=== PATIENT | female | born 1935 | race Caucasian/White ===

== ENCOUNTER 2022-11-22 13:44 | Outpatient (REF) | payer BC, SELFPAY ==
[2022-11-22 15:27] LABS: Thyroid Stimulating Hormone* 0.852 uIU/mL (0.270-4.20)
== END 2022-11-22 13:45 | disposition home or self-care (01) ==
LOC: NPINS 13:44
PROVIDERS: PCP Family Medicine; Visit Provider Nurse Practitioner Gerontology
DX: E03.9 Hypothyroidism, unspecified (principal)
CPT/HCPCS: 84443

== ENCOUNTER 2023-11-20 10:28 | Outpatient (REF) | payer BC, SELFPAY ==
[2023-11-20 11:38] LABS: Thyroid Stimulating Hormone* 0.781 uIU/mL (0.270-4.20)
== END 2023-11-20 10:29 | disposition home or self-care (01) ==
LOC: NPINS 10:28
PROVIDERS: PCP Family Medicine; Visit Provider Nurse Practitioner Gerontology
DX: E03.9 Hypothyroidism, unspecified (principal)
CPT/HCPCS: 84443

== ENCOUNTER 2024-02-26 11:48 | Outpatient (REF) | payer BC, SELFPAY ==
[2024-02-26 12:49] LABS: Chloride* 108 mmol/L (96-114)
[2024-02-26 12:50] LABS: Potassium* 4.8 mmol/L (3.6-5.1); Sodium* 139 mmol/L (135-149)
[2024-02-26 12:52] LABS: Creatinine* 1.1 mg/dL (0.5-1.5); Estimated Glomerular Filt Rate 49 ml/min
[2024-02-26 12:53] LABS: Anion Gap 8 mEq/L (7-15); Blood Urea Nitrogen* 37 mg/dL (7-30); Calcium* 9.5 mg/dL (8.4-10.6); Carbon Dioxide* 23 mmol/L (20-32); Glucose* 95 mg/dL (60-115)
== END 2024-02-26 11:49 | disposition home or self-care (01) ==
LOC: NPINS 11:48
PROVIDERS: PCP Family Medicine; Visit Provider Family Medicine
DX: I10 Essential (primary) hypertension (principal)
CPT/HCPCS: 80048

== ENCOUNTER 2024-05-20 11:15 | Outpatient (REF) | payer BC, SELFPAY ==
[2024-05-20 11:56] LABS: Chloride* 105 mmol/L (96-114); Potassium* 4.7 mmol/L (3.6-5.1); Sodium* 140 mmol/L (135-149)
[2024-05-20 11:58] LABS: Creatinine* 1.4 mg/dL (0.5-1.5); Estimated Glomerular Filt Rate 36 ml/min
[2024-05-20 11:59] LABS: Anion Gap 7 mEq/L (7-15); Blood Urea Nitrogen* 30 mg/dL (7-30); Calcium* 9.8 mg/dL (8.4-10.6); Carbon Dioxide* 28 mmol/L (20-32); Glucose* 94 mg/dL (60-115)
== END 2024-05-20 11:16 | disposition home or self-care (01) ==
LOC: NPINS 11:15
PROVIDERS: PCP Family Medicine; Visit Provider Nurse Practitioner Gerontology
DX: I10 Essential (primary) hypertension (principal); E03.9 Hypothyroidism, unspecified
CPT/HCPCS: 80048; 84443

== ENCOUNTER 2024-08-06 09:26 | Inpatient (IN) | payer BC, SELFPAY ==
[2024-08-06] VITALS (25 sets, daily range): BP systolic 145–178; BP diastolic 71–95; PULSE 67–78; RESP 16–18; TEMP 36.1–36.6; O2SAT 92–98; BMI 21.1; BMI 21.3
--- NOTE | 2024-08-06 09:25 | CT_ITS ---
Patient: EFREN KELLY Facility:?[facility] Patient ID:?[id number] Site Patient ID:?[id number]. Site :?[id number] Study:?CT-Head WITHOUT-08/06/2024 9:50:36 AM Ordering Physician:Nelson Torres Final Report: INDICATION: Fall. TECHNIQUE: CT head without contrast. COMPARISON: CT brain December 2019 FINDINGS: There is acute left parietal convexity subdural hemorrhage with a coronal length of 3 millimeter. Minimal subarachnoid hemorrhage of the left temporal sulci. Redemonstration of the moderate size chronic left cerebellar infarct and chronic lacunar infarct in the right caudate. Confluent periventricular, deep and subcortical white matter signal abnormalities are nonspecific and are likely related to chronic microvascular ischemic changes. Large left periorbital and frontal scalp hematoma with a contusion. Intraconal fat planes are preserved in bilateral orbits. Paranasal sinuses are well pneumatized. Minimal right mastoid effusion. No calvarial fracture. IMPRESSION: Acute minimal left parietal convexity subdural hemorrhage and minimal subarachnoid hemorrhage in the temporal lobe sulci. Large left frontal and periorbital hematoma and scalp contusion. Critical findings were communicated to Dr. Grant Torres by Dr. Dav MD radiology at 10 a.m. on 08/06/2024. Please note that all CT scans at this facility use dose modulation, iterative reconstruction, and/or weight-based dosing when appropriate to reduce radiation dose to as low as reasonably achievable. Dictated by Surinder Demarco MD @ 08/06/2024 10:09:56 AM Signed by:?Surinder Demarco MD @08/06/2024 10:09:56 AM (Electronic Signature)
--- NOTE | 2024-08-06 09:35 | CT_ITS ---
Patient: EFREN KELLY Facility:?[facility] Patient ID:?[id number] Site Patient ID:?[id number]. Site :?[id number] Study:?CT-Spine Cervical WITHOUT-08/06/2024 9:50:50 AM Ordering Physician:Nelson Torres Final Report: INDICATION: Fall. TECHNIQUE: CT cervical spine without contrast. COMPARISON: None. FINDINGS: Bilateral occipital condyles are intact. Atlantooccipital and atlanto odontoid intervals are maintained. There is straightening of normal cervical lordosis. No acute vertebral wedging compression fracture or malalignment. There is advanced multilevel degenerative changes with confluent anterior osteophytes at C2 through C7 levels. Large posterior osteophyte at C4 and C5 levels with ossification of the posterior longitudinal ligament. There is significant right subarticular recess stenosis at C4-5 level. There is moderate right neural foraminal stenosis at the same level with uncovertebral and facet arthropathy. Advanced uncovertebral hypertrophy with posterior protruding osteophytes in addition to facet arthropathies causing severe right neural foraminal narrowing at C3-4 level. No bloody vertebral hematoma. Calcified nodular density into the left thyroid lobe 3, likely goitrous changes. Paraseptal emphysema and apical pleural thickening in the included lung apices. IMPRESSION: Multilevel advanced degenerative changes of the spine without acute osseous injury. 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 Please note that all CT scans at this facility use dose modulation, iterative reconstruction, and/or weight-based dosing when appropriate to reduce radiation dose to as low as reasonably achievable. Dictated by Surinder Demarco MD @ 08/06/2024 10:19:08 AM Signed by:?Surinder Demarco MD @08/06/2024 10:19:08 AM (Electronic Signature)
--- NOTE | 2024-08-06 09:35 | CT_ITS ---
Patient: EFREN KELLY Facility:?[facility] Patient ID:?[id number] Site Patient ID:?[id number]. Site :?[id number] Study:?CT-Facial WITHOUT-08/06/2024 9:51:11 AM Ordering Physician:Nelson Torres Final Report: INDICATION: Facial injury. TECHNIQUE: CT maxillofacial without contrast. COMPARISON: CT brain August 06, 2024 FINDINGS: Bilateral zygomaticomaxillary complex is intact. Naso-orbital ethmoidal complexes are intact. Pterygoid plates are intact. Mandible is incompletely imaged. Included mandible is intact. Bilateral TM joint demonstrates no acute findings. Minimal mucosal thickening of the anterior right ethmoidal air cells and left maxillary sinus. Minimal bilateral mastoid effusion. Redemonstration of large left periorbital soft tissue hematoma and frontal scalp contusion with hematoma. Bilateral orbital globes are intact. Intraconal fat planes are maintained. Rest of the neck fat planes are maintained. IMPRESSION: Redemonstration of large left periorbital and frontal scalp hematoma. No acute osseous injury. Please note that all CT scans at this facility use dose modulation, iterative reconstruction, and/or weight-based dosing when appropriate to reduce radiation dose to as low as reasonably achievable. Dictated by Surinder Demarco MD @ 08/06/2024 10:28:45 AM Signed by:?Surinder Demarco MD @08/06/2024 10:28:45 AM (Electronic Signature)
[2024-08-06 10:12] LABS: Lactate* 1.3 mmol/L (0.5-1.9)
[2024-08-06 10:17] LABS: Basophils Percent Auto 0.6 % (0.0-3.0); Eosinophils Percent Auto 0.8 % (0.0-7.0); Hematocrit 45.2 % (33.0-51.0); Hemoglobin* 14.3 gm/dL (12.0-16.0); Immature Granulocytes Pct Auto 0.3 %; Lymphocytes Percent Auto 14.6 % (20-44); Mean Corpuscular HGB Conc 32 gm/dL (32-36); Mean Corpuscular Hemoglobin 28 pg (26-34); Mean Corpuscular Volume 88 fL (80-100); Monocytes Percent Auto 5.6 % (0.0-11.0); Neutrophils Percent Auto 78.1 % (42.0-72.0); Platelet Count* 96 K/uL (140-440); RDW Coefficient of Variation % 13.9 % (11.5-15.5); Red Blood Count 5.12 m/uL (4.00-5.20); White Blood Count* 12.18 K/uL (4.50-11.00)
--- NOTE | 2024-08-06 10:19 | CRLHL7_ITS ---
For Patients: As a result of the Century Cures Act, medical imaging exams and procedure reports are released immediately into your electronic medical record. You may view this report before your referring provider. If you have questions, please contact your health care provider. Indication: FALL. LEFT SIDED PAIN Technique: CT chest without IV contrast Comparison: None Findings: Enlarged thyroid gland with multiple calcified left thyroid nodules. No thoracic lymphadenopathy. Calcified left hilar lymph nodes, likely sequela of remote granulomatous disease. The heart is normal in size. No pericardial effusion. Coronary artery and aortic valve calcifications. The ascending thoracic aorta measures 3.9 centimeters in diameter. Artery moderate calcific atherosclerosis of the thoracic aorta. Is normal in caliber. The pulmonary moderate paraseptal and centrilobular emphysematous changes. No focal airspace consolidation, pleural effusion, or pneumothorax. Mild bibasilar and dependent linear atelectatic changes/scarring. There are a few sub 4 millimeter, some pleural nodules seen in the left upper lobe, likely benign. Calcified granuloma in the left lower lobe. The visualized upper abdomen is without acute abnormality. Likely simple appearing hepatic cysts. Calcified granulomas in the spleen. Cystic-like lesions in the bilateral kidneys, incompletely characterized on this exam. No acute fracture or malalignment. 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 No suspicious osseous lesions. Impression: 1. No acute fracture or malalignment. 2. Moderate paraseptal and centrilobular emphysematous changes. 3. There are a few sub 4 millimeter, subpleural pulmonary nodules in the left upper lobe, likely benign. If patient is at high risk for developing lung malignancy recommend repeat CT chest in 1 year; otherwise, no routine follow-up imaging is needed. 4. Cystic-like lesions in the bilateral kidneys, incompletely characterized on this exam. Recommend correlation with prior imaging if available; otherwise, recommend outpatient CT or MR with renal protocol for further assessment. 5. Enlarged thyroid gland with multiple calcified left thyroid nodules. Recommend dedicated thyroid ultrasound if not recently performed. Please note that all CT scans at this facility use dose modulation, iterative reconstruction, and/or weight-based dosing when appropriate to reduce radiation dose to as low as reasonably achievable. Dictated by Conner Ashley MD @ 08/06/2024 11:24:39 AM (Electronically Signed)
--- NOTE | 2024-08-06 10:19 | CRLHL7_ITS ---
For Patients: As a result of the Cures Act, medical imaging exams and procedure reports are released immediately into your electronic medical record. You may view this report before your referring provider. If you have questions, please contact your health care provider. Indication: Fall. Technique: Three view(s) of the left shoulder. Comparison: None available. Findings: No displaced fracture is identified. No dislocation. Osseous demineralization. Moderate acromioclavicular osteoarthritis. Subacromial enthesophyte formation. Mild streaky opacities in the left lung base. Atherosclerotic aortic calcifications. Impression: 1. No displaced fracture identified. 2. Hypoinflated lungs with streaky left basilar airspace opacities favoring subsegmental atelectasis. Dictated by Juanis Donaldson MD @ 08/06/2024 11:01:12 AM (Electronically Signed)
[2024-08-06 10:23] LABS: Slide Review Reflex No
[2024-08-06 10:35] LABS: Albumin* 4.3 g/dL (3.3-5.0); Chloride* 103 mmol/L (96-114); Sodium* 136 mmol/L (135-149)
[2024-08-06 10:38] LABS: Alkaline Phosphatase* 96 U/L (40-150); Anion Gap 7 mEq/L (7-15); Aspartate Amino Transferase* 18 U/L (12-35); Bilirubin Direct* 0.1 mg/dL (0.0-0.5); Bilirubin Total* 0.3 mg/dL (0.1-1.5); Blood Urea Nitrogen* 31 mg/dL (7-30); Carbon Dioxide* 26 mmol/L (20-32); Creatine Kinase* 51 U/L (41-117); Creatinine* 1.3 mg/dL (0.5-1.5); Est. Creatinine Clearance* 29.47; Estimated Glomerular Filt Rate 40 ml/min; Total Protein* 7.2 g/dL (6.0-8.3)
[2024-08-06 10:39] LABS: Alanine Aminotransferase* 11 U/L (4-35); Calcium* 9.6 mg/dL (8.4-10.6); Glucose* 122 mg/dL (60-115)
--- NOTE | 2024-08-06 11:00 | ED.NURSE ---
Patient requests to keep her home gown on as it is warmer. Can assess all areas of her body with her gown on.
--- NOTE | 2024-08-06 11:11 | ED.GENADULT ---
HPI - General Adult General Chief complaint: Fall/Minor Trauma Stated complaint: fall Time Seen by Provider: 08/06/24 09:45 Source: patient Mode of arrival: ambulatory Limitations: no limitations History of Present Illness HPI narrative: 89-year-old female coming in today after falling out of her bed this morning. She is not sure which she had on the way down she presents with a large facial hematoma. She complains of a headache. She feels ?sore all over?. She complains of discomfort over both sides of her neck, the left shoulder, left arm and left anterior chest wall. She is not short of breath or confused. She is alert oriented x3. She has a hard time opening her left eye due to the trauma. She denies any changes in her speech or strength. Patient lives in assisted living. Ambulates independently. Medical history significant for hypothyroidism, hypertension Meds were reviewed and updated in the chart. Related Data Home Medications ?Medication ?Instructions ?Recorded ?Confirmed calcium carbonate (Oyster [place] 500 mg PO DAILY 08/06/24 08/06/24 Calcium 500) cholecalciferol (vitamin D3) 50 50 mcg PO DAILY 08/06/24 08/06/24 mcg (2,000 unit) capsule levothyroxine 25 mcg tablet 25 mcg PO QAM 08/06/24 08/06/24 lisinopril 2.5 mg tablet 2.5 mg PO DAILY 08/06/24 08/06/24 metoprolol succinate 100 mg 100 mg PO DAILY 08/06/24 08/06/24 tablet,extended release 24 hr mirtazapine 30 mg tablet 30 mg PO DAILY 08/06/24 08/06/24 venlafaxine 150 mg 150 mg PO DAILY 08/06/24 08/06/24 capsule,extended release 24 hr Allergies Allergy/AdvReac Type Severity Reaction Status Date / Time No Known Drug Allergies Allergy Verified 08/06/24 09:27 Review of Systems Status of ROS: Reports: 10 or more systems reviewed and unremarkable except as noted in History and below Exam Narrative: Exam Narrative: Well-nourished well-developed patient in no acute distress. Alert and oriented x3. Answers questions appropriately. Mood and affect are appropriate. Thoughts are goal oriented and rational. No tangential or magical thinking noted. Patient speaks in full sentences without needing to catch her breath. GCS is 15. Patient is speaking and breathing without difficulty. HEENT: Normocephalic. Pupils are equally round reactive to light. Extraocular muscles are intact and do not cause pain with movement. Conjunctivae are moist without any icterus noted. Moist mucous membranes. Posterior pharynx is normal. No trauma noted to the inside of the mouth. Neck is soft , no masses appreciated. Patient has a large hematoma covering the entire left eye and left anterior forehead. Cardiovascular: Heart is regular rate and rhythm. Lungs: Clear to auscultation bilaterally no wheezes rhonchi or rales are appreciated. Patient takes deep breaths without any discomfort. She has some mild tenderness to palpation of the anterior left chest wall that is diffuse, no point tenderness over any particular rib. Mild tenderness over the anterior left shoulder and her upper arm. Abdomen: Soft, normal bowel sounds. Abdomen is distended but is nontender. Extremities: Bilateral lower extremities are without edema. A slight erythema secondary to skin irritation of the left knee. she can move the upper extremity - full range of motion at the shoulder with some discomfort. No acute point tenderness noted anywhere. Skin: Well perfused. Back: Normal appearance. Patient has no tenderness to palpation at the cervical, thoracic or lumbar spine. Patient has decreased range of motion of the neck secondary to discomfort. She has no acute tenderness over the cervical spine itself but does have tenderness over the paraspinal musculature. Const: Vital Signs, click to edit/add: Vital Signs - 24 hr 08/06/24 09:29 08/06/24 09:46 08/06/24 10:16 Temperature 97.5 F L Pulse Rate 69 Pulse Rate [Pulse Oximeter] 78 Respiratory Rate 17 Blood Pressure Blood Pressure [Ri ght Upper Arm] 174/80 H Pulse Oximetry 97 95 93 Oxygen Delivery Me thod Room Air 08/06/24 10:30 08/06/24 10:33 08/06/24 10:34 Temperature Pulse Rate 68 67 67 Pulse Rate [Pulse Oximeter] Respiratory Rate Blood Pressure 173/80 H Blood Pressure [Ri ght Upper Arm] Pulse Oximetry 93 96 94 Oxygen Delivery Me thod 08/06/24 11:01 08/06/24 11:05 08/06/24 11:15 Temperature Pulse Rate 68 68 67 Pulse Rate [Pulse Oximeter] Respiratory Rate Blood Pressure 178/95 H Blood Pressure [Ri ght Upper Arm] Pulse Oximetry 97 97 96 Oxygen Delivery [place] thod 08/06/24 11:17 08/06/24 11:30 08/06/24 11:32 Temperature Pulse Rate 69 70 69 Pulse Rate [Pulse Oximeter] Respiratory Rate Blood Pressure 178/86 H 178/80 H Blood Pressure [Ri ght Upper Arm] Pulse Oximetry 95 95 95 Oxygen Delivery Me thod 08/06/24 11:33 08/06/24 11:45 08/06/24 11:47 Temperature Pulse Rate 70 71 74 Pulse Rate [Pulse Oximeter] Respiratory Rate 16 Blood Pressure 153/71 H Blood Pressure [Ri ght Upper Arm] Pulse Oximetry 96 92 95 Oxygen Delivery Me thod Course Course ED Course: Patient arrives in a C-collar. We proceed immediately to head, facial and cervical spine CTs. Head CT shows small subdural and subarachnoid hematoma. We also do a shoulder x-ray which is unremarkable and a chest CT which is unremarkable aside from some pulmonary nodules and cystic lesions of the kidneys that will require follow-up pending patient wishes. I consulted with Dr. Solorzano, customs examiner at [facility], he recommends blood pressure control to keep her systolic less than 160. Because of this we did give her a dose of labetalol 10 mg IV. Blood pressure came down to 153/71. Also discussed with Dr. Solorzano that if the patient wishes to have significant intervention, then we should transfer the patient. I had this discussion with the patient who stated that she is ?too old to have any major surgery?. She wished to stay at [place] and not be transferred to [place]. We discussed that in the event she decompensates that there will be no intervention available here to save her life and patient states that she understands this. Blood work was also done prior to admission. Vital Signs Vital signs: Initial Vital Signs Temperature 97.5 F L 08/06/24 09:29 Temperature Source Temporal Artery Scan 08/06/24 09:29 Pulse Rate 78 08/06/24 09:29 Respiratory Rate 17 08/06/24 09:29 Blood Pressure 174/80 H 08/06/24 09:29 Blood Pressure Mean 111 H 08/06/24 09:29 Pulse Oximetry 97 08/06/24 09:29 Oxygen Delivery Method Room Air 08/06/24 09:29 Vital Signs Temperature 97.5 F L 08/06/24 09:29 Pulse Rate 78 08/06/24 09:29 Respiratory Rate 17 08/06/24 09:29 Blood Pressure 174/80 H 08/06/24 09:29 Pulse Oximetry 97 08/06/24 09:29 Oxygen Delivery Method Room Air 08/06/24 09:29 Temperature 97.5 F L 08/06/24 09:29 Pulse Rate 74 08/06/24 11:47 Respiratory Rate 16 08/06/24 11:33 Blood Pressure 153/71 H 08/06/24 11:47 Pulse Oximetry 95 08/06/24 11:47 Oxygen Delivery Method Room Air 08/06/24 09:29 Medications Administered Medications: Discontinued Medications Generic Name Dose Route Start Last Admin Trade Name Freq PRN Reason Stop Dose Admin Labetalol HCl 10 mg 08/06/24 11:00 08/06/24 11:37 Labetalol Hcl 5 Mg/Ml Inj IVP 08/06/24 11:01 10 mg ONCE ONE Administration Medical Decision Making MDM Narrative Medical decision making narrative: 89-year-old female with subdural and subarachnoid hemorrhages status post fall out of her bed, large facial hematoma. Patient will be admitted for monitoring and management. Lab Data Lab results reviewed: Yes I reviewed the patient's lab results Labs: Lab Results 08/06/24 Range/Units 10:05 WBC 12.18 H (4.50-11.00) K/uL RBC 5.12 (4.00-5.20) m/uL Hgb 14.3 (12.0-16.0) gm/dL Hct 45.2 (33.0-51.0) % MCV 88 (80-100) fL MCH 28 (26-34) pg MCHC 32 (32-36) gm/dL RDW Coeff of Peyton 13.9 (11.5-15.5) % Plt Count 96 L (140-440) K/uL Neut % (Auto) 78.1 H (42.0-72.0) % Lymph % (Auto) 14.6 L (20-44) % [place] % (Auto) 5.6 (0.0-11.0) % Eos % (Auto) 0.8 (0.0-7.0) % Baso % (Auto) 0.6 (0.0-3.0) % Neut # (Auto) 9.50 H (1.7-7.0) K/uL Lymph # (Auto) 1.80 (0.90-2.90) K/uL [place] # (Auto) 0.70 (0.00-0.90) K/UL Eos # (Auto) 0.10 (0.00-0.50) K/uL Baso # (Auto) 0.10 (0.00-0.30) K/uL Abs Immat Gran (auto) 0.00 (0.00-0.30) K/uL Imm/Tot Granulo (auto) 0.3 % Sodium 136 (135-149) mmol/L Potassium 4.0 (3.6-5.1) mmol/L Chloride 103 (96-114) mmol/L Carbon Dioxide 26 (20-32) mmol/L Anion Gap 7 (7-15) mEq/L BUN 31 H (7-30) mg/dL Creatinine 1.3 (0.5-1.5) mg/dL Estimated Creat Clear 29.47 Estimated GFR 40 ml/min Glucose 122 H (60-115) mg/dL Lactate 1.3 (0.5-1.9) mmol/L Calcium 9.6 (8.4-10.6) mg/dL Total Bilirubin 0.3 (0.1-1.5) mg/dL Direct Bilirubin 0.1 (0.0-0.5) mg/dL AST 18 (12-35) U/L ALT 11 (4-35) U/L Alkaline Phosphatase 96 (40-150) U/L Total Creatine Kinase 51 (41-117) U/L C-Reactive Protein 3.0 H (0.5-1.0) mg/dL Total Protein 7.2 (6.0-8.3) g/dL Albumin 4.3 (3.3-5.0) g/dL Imaging Data X-ray shoulder: Attestation: I have reviewed the pertinent imaging results. Radiologist's impression: Three view(s) of the left shoulder. Comparison: None available. Findings: No displaced fracture is identified. No dislocation. Osseous demineralization. Moderate acromioclavicular osteoarthritis. Subacromial enthesophyte formation. Mild streaky opacities in the left lung base. Atherosclerotic aortic calcifications. Impression: 1. No displaced fracture identified. 2. Hypoinflated lungs with streaky left basilar airspace opacities favoring subsegmental atelectasis. CT scan - chest: Attestation: I have reviewed the pertinent imaging results. Radiologist's impression: CT chest without IV contrast Comparison: None Findings: Enlarged thyroid gland with multiple calcified left thyroid nodules. No thoracic lymphadenopathy. Calcified left hilar lymph nodes, likely sequela of remote granulomatous disease. The heart is normal in size. No pericardial effusion. Coronary artery and aortic valve calcifications. The ascending thoracic aorta measures 3.9 centimeters in diameter. Artery moderate calcific atherosclerosis of the thoracic aorta. Is normal in caliber. The pulmonary moderate paraseptal and centrilobular emphysematous changes. No focal airspace consolidation, pleural effusion, or pneumothorax. Mild bibasilar and dependent linear atelectatic changes/scarring. There are a few sub 4 millimeter, some pleural nodules seen in the left upper lobe, likely benign. Calcified granuloma in the left lower lobe. The visualized upper abdomen is without acute abnormality. Likely simple appearing hepatic cysts. Calcified granulomas in the spleen. Cystic-like lesions in the bilateral kidneys, incompletely characterized on this exam. No acute fracture or malalignment. 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 No suspicious osseous lesions. Impression: 1. No acute fracture or malalignment. 2. Moderate paraseptal and centrilobular emphysematous changes. 3. There are a few sub 4 millimeter, subpleural pulmonary nodules in the left upper lobe, likely benign. If patient is at high risk for developing lung malignancy recommend repeat CT chest in 1 year; otherwise, no routine follow-up imaging is needed. 4. Cystic-like lesions in the bilateral kidneys, incompletely characterized on this exam. Recommend correlation with prior imaging if available; otherwise, recommend outpatient CT or MR with renal protocol for further assessment. 5. Enlarged thyroid gland with multiple calcified left thyroid nodules. Recommend dedicated thyroid ultrasound if not recently performed. Cervical spine CT: Attestation: I have reviewed the pertinent imaging results. Radiologist's impression: TECHNIQUE: CT cervical spine without contrast. COMPARISON: None. FINDINGS: Bilateral occipital condyles are intact. Atlantooccipital and atlanto odontoid intervals are maintained. There is straightening of normal cervical lordosis. No acute vertebral wedging compression fracture or malalignment. There is advanced multilevel degenerative changes with confluent anterior osteophytes at C2 through C7 levels. Large posterior osteophyte at C4 and C5 levels with ossification of the posterior longitudinal ligament. There is significant right subarticular recess stenosis at C4-5 level. There is moderate right neural foraminal stenosis at the same level with uncovertebral and facet arthropathy. Advanced uncovertebral hypertrophy with posterior protruding osteophytes in addition to facet arthropathies causing severe right neural foraminal narrowing at C3-4 level. No bloody vertebral hematoma. Calcified nodular density into the left thyroid lobe 3, likely goitrous changes. Paraseptal emphysema and apical pleural thickening in the included lung apices. IMPRESSION: Multilevel advanced degenerative changes of the spine without acute osseous injury. 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: Attestation: I have reviewed the pertinent imaging results. Radiologist's impression: CT maxillofacial without contrast. COMPARISON: CT brain August 06, 2024 FINDINGS: Bilateral zygomaticomaxillary complex is intact. Naso-orbital ethmoidal complexes are intact. Pterygoid plates are intact. Mandible is incompletely imaged. Included mandible is intact. Bilateral TM joint demonstrates no acute findings. Minimal mucosal thickening of the anterior right ethmoidal air cells and left maxillary sinus. Minimal bilateral mastoid effusion. Redemonstration of large left periorbital soft tissue hematoma and frontal scalp contusion with hematoma. Bilateral orbital globes are intact. Intraconal fat planes are maintained. Rest of the neck fat planes are maintained. IMPRESSION: Redemonstration of large left periorbital and frontal scalp hematoma. No acute osseous injury. CT scan - head: Attestation: I have reviewed the pertinent imaging results. Radiologist's impression: CT head without contrast. COMPARISON: CT brain December 2019 FINDINGS: There is acute left parietal convexity subdural hemorrhage with a coronal length of 3 millimeter. Minimal subarachnoid hemorrhage of the left temporal sulci. Redemonstration of the moderate size chronic left cerebellar infarct and chronic lacunar infarct in the right caudate. Confluent periventricular, deep and subcortical white matter signal abnormalities are nonspecific and are likely related to chronic microvascular ischemic changes. Large left periorbital and frontal scalp hematoma with a contusion. Intraconal fat planes are preserved in bilateral orbits. Paranasal sinuses are well pneumatized. Minimal right mastoid effusion. No calvarial fracture. IMPRESSION: Acute minimal left parietal convexity subdural hemorrhage and minimal subarachnoid hemorrhage in the temporal lobe sulci. Large left frontal and periorbital hematoma and scalp contusion. Critical findings were communicated to Dr. Grant Torres by Dr. Dav MD radiology at 10 a.m. on 08/06/2024. Discharge Plan Discharge Clinical Impression: Acute subdural hematoma, Subarachnoid hematoma, Facial hematoma
[2024-08-06] MEDS: LABETALOL HCL 5 MG/ML inj 10 MG IVP (11:37)
--- NOTE | 2024-08-06 13:44 | P.IMHP_ITS ---
Hospitalist- H&P: HPI History of Present Illness Date Seen: 08/06/24 Chief complaint: fall Narrative: Noa Adams is a 89 year old female who presented to the ER this morning after falling out of bed, hitting the R side of her face, R arm/shoulder. She was down for approximately one hour prior to being found by staff in her assisted living apartment. Patient doesn't remember the mechanism of the fall, doesn't think she had palpitations or syncope. ER Course and findings: - facial CT negative for acute fracture, + for large periorbital soft tissue hematoma and frontal scalp contusion/hematoma. Globes intact bilaterally - no acute abnormalities on CT spine - L parietal subdural + subarachnoid hemorrhage in temporal lobe sulci Neurosurgery consulted, patient requested no transfer given wishes (DNR/DNI, requests no invasive procedures). Upon arrival to the floor, Noa is feeling better, no pain or other concerns for hospitalist team. Review of Systems Status of ROS: Reports: 10 or more systems reviewed and unremarkable except as noted in History and below [facility] Medical History (Updated 08/06/24 @ 14:55 by Triny Hong MD) Thrombocytopenia ?D69.6 - Thrombocytopenia, unspecified (ICD-10) Depression ?F32.A - Depression, unspecified (ICD-10) Essential hypertension ?I10 - Essential (primary) hypertension (ICD-10) Hypothyroidism ?E03.9 - Hypothyroidism, unspecified (ICD-10) Surgical History (Updated 08/06/24 @ 14:29 by Triny Hong MD) H/O mastectomy ?Z90.10 - Acquired absence of unspecified breast and nipple (ICD-10) S/P hip replacement ?Z96.649 - Presence of unspecified artificial hip joint (ICD-10) History of hip surgery ?Z98.890 - Other specified postprocedural states (ICD-10) Social History (Updated 08/06/24 @ 14:30 by Triny Hong MD) Narrative: Lives in Assisted Living, 2 adult children in [place]. 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 Former smoker, no ETOH use. DNR/DNI Meds Home Medications and Allergies Home Medications ?Medication ?Instructions ?Recorded ?Confirmed ?Type calcium carbonate (Oyster Shell 500 mg PO DAILY 08/06/24 08/06/24 History Calcium 500) cholecalciferol (vitamin D3) 50 50 mcg PO DAILY 08/06/24 08/06/24 History mcg (2,000 unit) capsule levothyroxine 25 mcg tablet 25 mcg PO QAM 08/06/24 08/06/24 History lisinopril 2.5 mg tablet 2.5 mg PO DAILY 08/06/24 08/06/24 History metoprolol succinate 100 mg 100 mg PO DAILY 08/06/24 08/06/24 History tablet,extended release 24 hr mirtazapine 30 mg tablet 30 mg PO DAILY 08/06/24 08/06/24 History venlafaxine 150 mg 150 mg PO DAILY 08/06/24 08/06/24 History capsule,extended release 24 hr Allergies Allergy/AdvReac Type Severity Reaction Status Date / Time No Known Drug Allergies Allergy Verified 08/06/24 09:27 Exam Narrative: Exam Narrative: GEN: Alert and answering questions appropriately HEENT: Large hematoma over L eye, able to open this house a tiny amount CV: RRR, No concerning murmurs, rubs, or gallops R: LCTA bilaterally without concerning wheezing, air movement adequate Ext: wwp, no concerning edema Skin: Scattered bruising over extremities Neuro: No focal deficits, no resting tremor Psych: Appropriate Const: Vital Signs, click to edit/add: Vital Signs - 24 hr 08/06/24 09:29 08/06/24 09:46 08/06/24 10:16 Temperature 97.5 F L Pulse Rate 69 Pulse Rate [Pulse Oximeter] 78 Respiratory Rate 17 Blood Pressure Blood Pressure [Ri ght Upper Arm] 174/80 H Pulse Oximetry 97 95 93 Oxygen Delivery Me od Room Air 08/06/24 10:30 08/06/24 10:33 08/06/24 10:34 Temperature Pulse Rate 68 67 67 Pulse Rate [Pulse Oximeter] Respiratory Rate Blood Pressure 173/80 H Blood Pressure [Ri ght Upper Arm] Pulse Oximetry 93 96 94 Oxygen Delivery Me thod 08/06/24 11:01 08/06/24 11:05 08/06/24 11:15 Temperature Pulse Rate 68 68 67 Pulse Rate [Pulse Oximeter] Respiratory Rate Blood Pressure 178/95 H Blood Pressure [Ri ght Upper Arm] Pulse Oximetry 97 97 96 [facility] 08/[facility] 11:17 08/06/24 11:30 08/06/24 11:32 Temperature Pulse Rate 69 70 69 Pulse Rate [Pulse Oximeter] Respiratory Rate Blood Pressure 178/86 H 178/80 H Blood Pressure [Ri ght Upper Arm] Pulse Oximetry 95 95 95 Oxygen Delivery Me thod 08/06/24 11:33 08/06/24 11:45 08/06/24 11:47 Temperature Pulse Rate 70 71 74 Pulse Rate [Pulse Oximeter] Respiratory Rate 16 Blood Pressure 153/71 H Blood Pressure [Ri ght Upper Arm] Pulse Oximetry 96 92 95 Oxygen Delivery Me thod 08/06/24 11:48 08/06/24 12:00 08/06/24 12:02 Temperature Pulse Rate 71 71 72 Pulse Rate [Pulse Oximeter] Respiratory Rate Blood Pressure 160/79 H Blood Pressure [Ri ght Upper Arm] Pulse Oximetry 94 95 95 Oxygen Delivery Me thod 08/06/24 12:15 08/06/24 12:17 Temperature Pulse Rate 71 73 Pulse Rate [Pulse Oximeter] Respiratory Rate 16 Blood Pressure 157/83 H Blood Pressure [Ri ght Upper Arm] Pulse Oximetry 94 96 [facility] - H&P: Result Labs Labs: Short CBC 08/06/24 Range/Units 10:05 WBC 12.18 H (4.50-11.00) K/uL Hgb 14.3 (12.0-16.0) gm/dL Hct 45.2 (33.0-51.0) % Plt Count 96 L (140-440) K/uL BMP 08/06/24 10:05 Sodium 136 Potassium 4.0 Chloride 103 Carbon Dioxide 26 BUN 31 H Creatinine 1.3 Glucose 122 H Calcium 9.6 Cardiac Enzymes 08/06/24 Range/Units 10:05 Total Creatine Kinase 51 (41-117) U/L Liver Function 08/06/24 Range/Units 10:05 Total Bilirubin 0.3 (0.1-1.5) mg/dL Direct Bilirubin 0.1 (0.0-0.5) mg/dL AST 18 (12-35) U/L ALT 11 (4-35) U/L Alkaline Phosphatase 96 (40-150) U/L Albumin 4.3 (3.3-5.0) g/dL Assessment and Plan Assessment and plan (1) Acute subdural hematoma: Problem comment: - noted on imaging 08/06, s/p fall - per neurosurgery: keep SBP <160 - will repeat head CT in am, sooner prn Status: Acute (2) Subarachnoid hematoma: Status: Acute (3) Thrombocytopenia: Problem comment: - chronic per chart review, current platelets 96 Status: Acute (4) Facial hematoma: Problem comment: - no facial fractures Status: Acute Plan - per above - monitoring, keep SBP <160 - therapies - d/c plan pending course
--- NOTE | 2024-08-06 18:40 | PC.NURSE ---
Pt arrived from ED at 1240. Pt alert and oriented. Pt pleasant and cooperative. Pt had complaints of pain ranging from 2-9; pain with movement. Pt did not want pain medications. Pt up with assist of one with gait belt and walker. Pt has bruising and swelling around left eye; Pt offered an ice pack but refused.?
[2024-08-06] MEDS: SODIUM CHLORIDE 0.9 % (FLUSH) 10 ML SYRINGE 5 ML IVF (21:30)
[2024-08-06] MEDS: MIRTAZAPINE 15 MG TABLET 30 MG PO (21:30)
[2024-08-07] VITALS (17 sets, daily range): BP systolic 102–187; BP diastolic 66–92; PULSE 68–96; RESP 14–16; TEMP 36.7–37.2; O2SAT 91–96
[2024-08-07] MEDS: METOPROLOL TARTRATE 1 MG/ML inj 5 MG IVP (00:29)
[2024-08-07] MEDS: LABETALOL HCL 5 MG/ML inj IVP ×3 (02:17→04:52)
[2024-08-07] MEDS: SODIUM CHLORIDE 0.9 % (FLUSH) 10 ML SYRINGE 5 ML IVF ×3 (04:53→22:47)
[2024-08-07 06:32] LABS: Basophils Absolute Auto 0.05 K/uL (0.00-0.30); Basophils Percent Auto 0.6 % (0.0-3.0); Eosinophils Absolute Auto 0.07 K/uL (0.00-0.50); Eosinophils Percent Auto 0.9 % (0.0-7.0); Hematocrit 43.1 % (33.0-51.0); Hemoglobin* 13.9 gm/dL (12.0-16.0); Immature Granulocytes Abs Auto 0.02 K/uL (0.00-0.30); Immature Granulocytes Pct Auto 0.3 %; Lymphocytes Absolute Auto 1.94 K/uL (0.90-2.90); Lymphocytes Percent Auto 24.3 % (20-44); Mean Corpuscular HGB Conc 32 gm/dL (32-36); Mean Corpuscular Hemoglobin 28 pg (26-34); Mean Corpuscular Volume 87 fL (80-100); Monocytes Percent Auto 8.3 % (0.0-11.0); Neutrophils Absolute Auto 5.26 K/uL (1.7-7.0); Neutrophils Percent Auto 65.6 % (42.0-72.0); Platelet Count* 103 K/uL (140-440); RDW Coefficient of Variation % 14.1 % (11.5-15.5); Red Blood Count 4.96 m/uL (4.00-5.20)
[2024-08-07 06:33] LABS: Slide Review Reflex No
[2024-08-07 06:44] LABS: Albumin* 4.1 g/dL (3.3-5.0); Chloride* 104 mmol/L (96-114); Sodium* 136 mmol/L (135-149)
[2024-08-07 06:47] LABS: Alanine Aminotransferase* 12 U/L (4-35); Alkaline Phosphatase* 88 U/L (40-150); Anion Gap 9 mEq/L (7-15); Aspartate Amino Transferase* 18 U/L (12-35); Bilirubin Total* 0.4 mg/dL (0.1-1.5); Blood Urea Nitrogen* 25 mg/dL (7-30); Carbon Dioxide* 23 mmol/L (20-32); Est. Creatinine Clearance* 36.77; Estimated Glomerular Filt Rate 55 ml/min; Glucose* 134 mg/dL (60-115)
[2024-08-07 06:48] LABS: Calcium* 9.2 mg/dL (8.4-10.6)
--- NOTE | 2024-08-07 06:50 | PC.NURSE ---
Pt alert and oriented x3. Afebrile. Pt reports 3/10 pain left side of face, and left side of body, while lying still and 9/10 with movement, PRN medication offered pt refused stating I feel fine right now. Pt had blood pressures >160 systolic, gave PRN Metoprolol tartrate per protocol, systolic bp was >160, called and updated MD Farrell. MD Farrell gave orders to keep bp <145 and a PRN order of Labetalol HCL 5 mg, systolic bp came down <145. Pt is up A1 with walker and gait belt and tolerating regular diet. Pt had not voided overnight, director of strategic marketing Belle bladder scanned for 322 ml. Pt reports not having to use restroom during night at home as baseline. Updated on coming RN to monitor.
--- NOTE | 2024-08-07 07:00 | CRLHL7_ITS ---
For Patients: As a result of the Century Cures Act, medical imaging exams and procedure reports are released immediately into your electronic medical record. You may view this report before your referring provider. If you have questions, please contact your health care provider. Indication: Pain after injury. Technique: Noncontrast CT of head was performed. Comparison: 08/06/2024. Findings: Brain parenchyma: Similar encephalomalacia within the left cerebellar hemisphere. Additionally, similar hypodensity within the right caudate. No new loss of armendariz-white matter differentiation. No new intraparenchymal hemorrhage. No new mass effect or midline shift. Extra-axial spaces: Thin subdural hematoma along the left sylvian fissure measures approximally 2.5 mm, similar to prior (). Additionally, small amount of subarachnoid hemorrhage along the left temporal sulci are unchanged. No new extra-axial hemorrhage is identified. Ventricular system: Unchanged. Paranasal sinuses and mastoid air cells: Clear. Orbits: Unremarkable. Bones: No calvarial fracture. Similar appearance of the left periorbital hematoma measuring up to 2.9 cm. Impression: 1. Similar appearance of the thin left subdural hematoma along the sylvian fissure and trace subarachnoid hemorrhage along the left temporal lobe. 2. Unchanged left periorbital hematoma. Please note that all CT scans at this facility use dose modulation, iterative reconstruction, and/or weight-based dosing when appropriate to reduce radiation dose to as low as reasonably achievable. Dictated by Juanis Donaldson MD @ 08/07/2024 7:21:58 AM (Electronically Signed)
[2024-08-07] MEDS: METOPROLOL SUCCINATE (XL) 100 MG TAB PO (08:57)
[2024-08-07] MEDS: VENLAFAXINE ER 75 MG CAPSULE 150 MG PO (08:57)
[2024-08-07] MEDS: lisinopriL 5 MG TABLET 2.5 MG PO (08:57)
--- NOTE | 2024-08-07 11:01 | PM.IMPN1 ---
Progress Note: A&P Assessment and plan (1) Acute subdural hematoma: Problem details: - noted on imaging 08/06, s/p fall - per neurosurgery: keep SBP <160, has prn Labetalol available - repeat head CT 08/07 demonstrates stability Status: Acute (2) Subarachnoid hematoma: Problem details: - as above Status: Acute (3) Thrombocytopenia: Problem details: - chronic per chart review, platelets 96-103 during stay Status: Acute (4) Facial hematoma: Problem details: - no facial fractures Status: Acute Plan - per above - possibly home as early as tomorrow pending clinical stability and therapy evaluations - attempted to call daughter to update, phone number disconnected Subjective Date Seen: 08/07/24 Interval history: Noa was admitted to the hospital yesterday after a fall at home (unclear if mechanical), sustaining a left periorbital hematoma, subdural hemorrhage, subarachnoid hemorrhage. She declined transfer to tertiary care facility given goals of care. Neurosurgery consulted, recommended monitoring, keeping SBP <160. Received Labetalol overnight for BP management, restarting home Lisinopril and Metoprolol this morning. Repeat head CT this morning demonstrates stability. Working with therapies. Lives independently in an assisted living apartment. Exam Narrative: Exam Narrative: GEN: Alert and sitting comfortably in bed, eating breakfast HEENT: R eye hematoma persists, significantly less edema (able to open eye fully this morning) CV: RRR R: Breathing comfortably, no wheezing Ext: wwp, no concerning edema Skin: Scattered bruising of extremities, small R skin tear Neuro: No focal deficits or resting tremor Psych: Appropriate Const: Vital Signs, click to edit/add: Vital Signs - 24 hr 08/06/24 11:05 08/06/24 11:15 08/06/24 11:17 Temperature Pulse Rate 68 67 69 Pulse Rate [Bilate ral Radial] Pulse Rate [Pulse Oximeter] Pulse Rate [orthos tatic lying Right Pulse Oximeter] Pulse Rate [orthos tatic sitting Righ t Pulse Oximeter] Pulse Rate [orthos tatic standing Pul se Oximeter] Respiratory Rate Blood Pressure 178/95 H 178/86 H Blood Pressure [Ri ght Arm] Blood Pressure [or thostatic lying Le ft Arm] Blood Pressure [or thostatic sitting Left Arm] Blood Pressure [or thostatic standing Left Arm] Pulse Oximetry 97 96 95 Oxygen Delivery Me thod 08/06/24 11:30 08/06/24 11:32 08/06/24 11:33 Temperature Pulse Rate 70 69 70 Pulse Rate [Bilate ral Radial] Pulse Rate [Pulse Oximeter] Pulse Rate [orthos tatic lying Right Pulse Oximeter] Pulse Rate [orthos tatic sitting Righ t Pulse Oximeter] Pulse Rate [orthos tatic standing Pul se Oximeter] Respiratory Rate 16 Blood Pressure 178/80 H Blood Pressure [Ri ght Arm] Blood Pressure [or thostatic lying Le ft Arm] Blood Pressure [or thostatic sitting Left Arm] Blood Pressure [or thostatic standing Left Arm] Pulse Oximetry 95 95 96 Oxygen Delivery Me thod 08/06/24 11:45 08/06/24 11:47 08/06/24 11:48 Temperature Pulse Rate 71 74 71 Pulse Rate [Bilate ral Radial] Pulse Rate [Pulse Oximeter] Pulse Rate [orthos tatic lying Right Pulse Oximeter] Pulse Rate [orthos tatic sitting Righ t Pulse Oximeter] Pulse Rate [orthos tatic standing Pul se Oximeter] Respiratory Rate Blood Pressure 153/71 H Blood Pressure [Ri ght Arm] Blood Pressure [or thostatic lying Le ft Arm] Blood Pressure [or thostatic sitting Left Arm] Blood Pressure [or thostatic standing Left Arm] Pulse Oximetry 92 95 94 Oxygen Delivery Me thod 08/06/24 12:00 08/06/24 12:02 08/06/24 12:15 Temperature Pulse Rate 71 72 71 Pulse Rate [Bilate ral Radial] Pulse Rate [Pulse Oximeter] Pulse Rate [orthos tatic lying Right Pulse Oximeter] Pulse Rate [orthos tatic sitting Righ t Pulse Oximeter] Pulse Rate [orthos tatic standing Pul se Oximeter] Respiratory Rate Blood Pressure 160/79 H Blood Pressure [Ri ght Arm] Blood Pressure [or thostatic lying Le ft Arm] Blood Pressure [or thostatic sitting Left Arm] Blood Pressure [or thostatic standing Left Arm] Pulse Oximetry 95 95 94 Oxygen Delivery Me thod 08/06/24 12:17 08/06/24 13:00 08/06/24 14:03 Temperature Pulse Rate 73 72 Pulse Rate [Bilate ral Radial] Pulse Rate [Pulse Oximeter] Pulse Rate [orthos tatic lying Right Pulse Oximeter] Pulse Rate [orthos tatic sitting Righ t Pulse Oximeter] Pulse Rate [orthos tatic standing Pul se Oximeter] Respiratory Rate 16 16 Blood Pressure 157/83 H Blood Pressure [Ri ght Arm] Blood Pressure [or thostatic lying Le ft Arm] Blood Pressure [or thostatic sitting Left Arm] Blood Pressure [or thostatic standing Left Arm] Pulse Oximetry 96 98 Oxygen Delivery Me thod Room Air 08/06/24 14:10 08/06/24 15:00 08/06/24 15:00 Temperature 96.9 F L 97.5 F L Pulse Rate Pulse Rate [Bilate ral Radial] Pulse Rate [Pulse Oximeter] 71 73 73 Pulse Rate [orthos tatic lying Right Pulse Oximeter] Pulse Rate [orthos tatic sitting Righ t Pulse Oximeter] Pulse Rate [orthos tatic standing Pul se Oximeter] Respiratory Rate 18 16 Blood Pressure Blood Pressure [Ri ght Arm] 145/77 H 146/77 H Blood Pressure [or thostatic lying Le ft Arm] Blood Pressure [or thostatic sitting Left Arm] Blood Pressure [or thostatic standing Left Arm] Pulse Oximetry 96 98 Oxygen Delivery Me thod Room Air Room Air 08/06/24 20:18 08/07/24 00:18 08/07/24 00:18 Temperature 97.8 F 98.6 F Pulse Rate 84 Pulse Rate [Bilate ral Radial] 78 89 Pulse Rate [Pulse Oximeter] 89 Pulse Rate [orthos tatic lying Right Pulse Oximeter] Pulse Rate [orthos tatic sitting Righ t Pulse Oximeter] Pulse Rate [orthos tatic standing Pul se Oximeter] Respiratory Rate 16 16 Blood Pressure Blood Pressure [Ri ght Arm] 153/77 H 187/89 H Blood Pressure [or thostatic lying Le ft Arm] Blood Pressure [or thostatic sitting Left Arm] Blood Pressure [or thostatic standing Left Arm] Pulse Oximetry 97 94 Oxygen Delivery Me thod Room Air Room Air 08/07/24 00:18 08/07/24 02:17 08/07/24 02:17 Temperature Pulse Rate Pulse Rate [Bilate ral Radial] 89 Pulse Rate [Pulse Oximeter] 89 82 82 Pulse Rate [orthos tatic lying Right Pulse Oximeter] Pulse Rate [orthos tatic sitting Righ t Pulse Oximeter] Pulse Rate [orthos tatic standing Pul se Oximeter] Respiratory Rate 16 Blood Pressure Blood Pressure [Ri ght Arm] 166/79 H Blood Pressure [or thostatic lying Le ft Arm] Blood Pressure [or thostatic sitting Left Arm] Blood Pressure [or thostatic standing Left Arm] Pulse Oximetry 93 Oxygen Delivery Me thod Room Air 08/07/24 02:22 08/07/24 02:45 08/07/24 03:38 Temperature 98.8 F 98.5 F Pulse Rate Pulse Rate [Bilate ral Radial] Pulse Rate [Pulse Oximeter] 84 85 88 Pulse Rate [orthos tatic lying Right Pulse Oximeter] Pulse Rate [orthos tatic sitting Righ t Pulse Oximeter] Pulse Rate [orthos tatic standing Pul se Oximeter] Respiratory Rate 16 16 14 Blood Pressure Blood Pressure [Ri ght Arm] 130/80 167/78 H 158/82 H Blood Pressure [or thostatic lying Le ft Arm] Blood Pressure [or thostatic sitting Left Arm] Blood Pressure [or thostatic standing Left Arm] Pulse Oximetry 92 92 91 Oxygen Delivery Me thod Room Air Room Air Room Air 08/07/24 03:38 08/07/24 03:46 08/07/24 03:48 Temperature Pulse Rate Pulse Rate [Bilate ral Radial] Pulse Rate [Pulse Oximeter] 88 86 86 Pulse Rate [orthos tatic lying Right Pulse Oximeter] Pulse Rate [orthos tatic sitting Righ t Pulse Oximeter] Pulse Rate [orthos tatic standing Pul se Oximeter] Respiratory Rate 14 16 Blood Pressure Blood Pressure [Ri ght Arm] 147/76 H 121/75 Blood Pressure [or thostatic lying Le ft Arm] Blood Pressure [or thostatic sitting Left Arm] Blood Pressure [or thostatic standing Left Arm] Pulse Oximetry 92 91 Oxygen Delivery Me thod Room Air Room Air 08/07/24 04:42 08/07/24 04:59 08/07/24 04:59 Temperature 98.9 F Pulse Rate Pulse Rate [Bilate ral Radial] Pulse Rate [Pulse Oximeter] 84 86 86 Pulse Rate [orthos tatic lying Right Pulse Oximeter] Pulse Rate [orthos tatic sitting Righ t Pulse Oximeter] Pulse Rate [orthos tatic standing Pul se Oximeter] Respiratory Rate 14 14 Blood Pressure Blood Pressure [Ri ght Arm] 169/83 H 144/75 H Blood Pressure [or thostatic lying Le ft Arm] Blood Pressure [or thostatic sitting Left Arm] Blood Pressure [or thostatic standing Left Arm] Pulse Oximetry 94 93 Oxygen Delivery Me thod Room Air Room Air 08/07/24 05:30 08/07/24 07:30 08/07/24 07:30 Temperature 98.4 F Pulse Rate Pulse Rate [Bilate ral Radial] Pulse Rate [Pulse Oximeter] 79 79 85 Pulse Rate [orthos tatic lying Right Pulse Oximeter] Pulse Rate [orthos tatic sitting Righ t Pulse Oximeter] Pulse Rate [orthos tatic standing Pul se Oximeter] Respiratory Rate 16 Blood Pressure Blood Pressure [Ri ght Arm] 142/77 H 142/85 H Blood Pressure [or thostatic lying Le ft Arm] Blood Pressure [or thostatic sitting Left Arm] Blood Pressure [or thostatic standing Left Arm] Pulse Oximetry 92 92 Oxygen Delivery Me thod Room Air Room Air 08/07/24 10:19 08/07/24 10:26 Temperature 98.0 F Pulse Rate Pulse Rate [Bilate ral Radial] Pulse Rate [Pulse Oximeter] 81 Pulse Rate [orthos tatic lying Right Pulse Oximeter] 81 Pulse Rate [orthos tatic sitting Righ t Pulse Oximeter] 87 Pulse Rate [orthos tatic standing Pul se Oximeter] 96 Respiratory Rate 16 Blood Pressure Blood Pressure [Ri ght Arm] 140/86 H Blood Pressure [or thostatic lying Le ft Arm] 140/68 H Blood Pressure [or thostatic sitting Left Arm] 123/82 Blood Pressure [or thostatic standing Left Arm] 102/92 H Pulse Oximetry 95 Oxygen Delivery Me thod Room Air Labs Labs: Laboratory Results - last 24 hr 08/07/24 06:13 WBC 8.00 RBC 4.96 Hgb 13.9 Hct 43.1 MCV 87 MCH 28 MCHC 32 RDW Coeff of Peyton 14.1 Plt Count 103 L Neut % (Auto) 65.6 Lymph % (Auto) 24.3 [place] % (Auto) 8.3 Eos % (Auto) 0.9 Baso % (Auto) 0.6 Neut # (Auto) 5.26 Lymph # (Auto) 1.94 [place] # (Auto) 0.70 Eos # (Auto) 0.07 Baso # (Auto) 0.05 Abs Immat Gran (auto) 0.02 Imm/Tot Granulo (auto) 0.3 Sodium 136 Potassium 4.0 Chloride 104 Carbon Dioxide 23 Anion Gap 9 BUN 25 Creatinine 1.0 Estimated Creat Clear 36.77 Estimated GFR 55 Glucose 134 H Calcium 9.2 Total Bilirubin 0.4 AST 18 ALT 12 Alkaline Phosphatase 88 Total Protein 7.0 Albumin 4.1
--- NOTE | 2024-08-07 13:30 | PC.SOCIAL ---
Addendum entered and electronically signed by LILI Sparks 08/07/24 16:07: Discharge plans: Pt was assessed by nurse Tahira, from the [facility]. They can accept pt for admit tomorrow and will transition her back to her apartment when she is able. Pt's Medical Assistance waiver will pay for care needed at the [facility] assisted living. Van will pick pt up at 11:00 tomorrow morning. Original Note: Discharge planning: Met with pt in room regarding d/c plan. Pt states she has lived at [facility] for 14 years. She has her meals provided and laundry done by staff. She would like to return to that campus at discharge. If she needs additional assistance, she would be interested in the enhanced assisted living option on that campus. She is aware that she would be paying privately for that level of care. Pt gave permission for outreach and education social worker to call her daughter Dixie Guerrier to update her on pt being admitted to the hospital and to discuss discharge plan. Called pt's dtr at number on face sheet which had been disconnected. Received the correct number for dtr from [facility] staff. Called dtr, Dixie, at [phone]. Dtr is aware and agrees with pt's ideas regarding d/c. Dtr states she has been somewhat estranged from pt and is surprised pt is allowing hospital staff to speak with her. conveyor line bakery worker confirmed dtrs contact address and phone number and requested admissions staff update this information in pt's chart. conveyor line bakery worker called Tahira at [facility] who confirmed there are beds available in the enhanced assisted living unit. conveyor line bakery worker to continue to assist with discharge planning.
--- NOTE | 2024-08-07 18:53 | PC.NURSE ---
(Shift 07-1500) Pt alert and oriented. Pt pleasant and cooperative. Pt had complaints of n with movement; Pt did not want pain medications. Pt up with assist of one with gait belt and walker. Pt has bruising and swelling around left eye, bruising on left leg, hematoma on left hip, and abrasion on right mcnamara. [facility] RN to assess Pt 08/07 evening for possible EAL placement.?
[2024-08-07] MEDS: MIRTAZAPINE 15 MG TABLET 30 MG PO (20:57)
--- NOTE | 2024-08-07 22:44 | PC.NURSE ---
(Shift [id number])PT VSS. A&O. Tolerated a regular diet well. IV saline locked in right forearm. Bruising still noted over left eye, hip and leg. Skin tear noted on left elbow area. Open to air to heal. TEDS on during the day, removed at night for sleep. hand picker showed NSR. No c/o pain or request of pain medication. Amb with SBA, 4WW and gait belt.
[2024-08-08 03:10] VITALS: BP 151/88; PULSE 68; RESP 14; TEMP 36.8; O2SAT 93
[2024-08-08 06:24] LABS: Basophils Absolute Auto 0.07 K/uL (0.00-0.30); Basophils Percent Auto 0.8 % (0.0-3.0); Eosinophils Absolute Auto 0.25 K/uL (0.00-0.50); Hematocrit 44.2 % (33.0-51.0); Immature Granulocytes Abs Auto 0.05 K/uL (0.00-0.30); Immature Granulocytes Pct Auto 0.6 %; Lymphocytes Absolute Auto 2.53 K/uL (0.90-2.90); Lymphocytes Percent Auto 30.4 % (20-44); Mean Corpuscular HGB Conc 32 gm/dL (32-36); Mean Corpuscular Hemoglobin 28 pg (26-34); Mean Corpuscular Volume 88 fL (80-100); Monocytes Percent Auto 8.8 % (0.0-11.0); Neutrophils Percent Auto 56.4 % (42.0-72.0); Platelet Count* 102 K/uL (140-440); RDW Coefficient of Variation % 14.2 % (11.5-15.5); White Blood Count* 8.33 K/uL (4.50-11.00)
[2024-08-08 06:26] LABS: Slide Review Reflex No
[2024-08-08 07:00] VITALS: BP 133/71; PULSE 78; PULSE 83; RESP 16; TEMP 36.8; O2SAT 98
--- NOTE | 2024-08-08 07:18 | PM.DS1 ---
DS: Providers Provider Date Seen: 08/08/24 Date of admission: 08/06/24 13:31 Primary care physician: Nilo Pitt MD Admitting Clinician: Triny Hong MD Consults: PT, OT, SW Attending Physician on discharge: Triny Hong MD Date of Discharge: 08/08/24 DS: Diagnosis Discharge Diagnosis (1) Acute subdural hematoma: Status: Acute Problem details: - noted on imaging 08/06, s/p fall - per neurosurgery: keep SBP <160, has prn Labetalol available - repeat head CT 08/07 demonstrated stability - patient remained stable, seen by therapies - given injury and MOCA of , recommend increased services upon discharge ([facility]) (2) Subarachnoid hematoma: Status: Acute Problem details: - as above (3) Thrombocytopenia: Status: Acute Problem details: - chronic per chart review, platelets 96-103 during stay (4) Facial hematoma: Status: Acute Problem details: - no facial fractures DS: Summary Hospital Course Hospital Course: Noa was admitted to the hospital on 08/06/24 after a fall at home, sustaining a left periorbital hematoma, subdural hemorrhage, subarachnoid hemorrhage. She declined transfer to tertiary care facility given goals of care. Neurosurgery consulted, recommended monitoring, keeping SBP <160. Received Labetalol during first overnight for BP management, then restarted home Lisinopril and Metoprolol 08/07 with appropriate control. Repeat head CT on hospital day 1 demonstrated stability. + orthostatic findings on VS. Worked with therapies during stay; MOCA (unclear if chronic or related to head injury). Given findings and recent fall, increased help on d/c recommended. Patient evaluated and accepted by the [facility] on [facility], medically appropriate for d/c there on 08/08/24. Status at Discharge Functional status at discharge: independent ambulation Overall status at discharge: patient is progressing back to baseline Time Spent with Patient Time attestation: Total time spent providing and/or coordinating discharge services: Time spent: Greater than 30 minutes Specific discharge activities: multidisciplinary team consultation, medication reconciliation Exam Narrative: Exam Narrative: GEN: Alert and oriented, sitting comfortably in bedside chair and having breakfast HEENT: Left eye hematoma with improvement in edema. Able to open left eye fully. EOMIs bilaterally CV: RRR, soft systolic murmur without concerning features R: LCTA bilaterally without concerning wheezing, air movement adequate Ext: wwp, no concerning edema Skin: Scattered bruising of extremities, L>R. Small skin tear left arm, hemostatic Neuro: No focal deficits Psych: Appropriate Const: Vital Signs, click to edit/add: Vital Signs - 24 hr 08/07/24 07:30 08/07/24 07:30 08/07/24 07:30 Temperature 98.4 F Pulse Rate Pulse Rate [Pulse Oximeter] 79 85 81 Pulse Rate [orthos tatic lying Right Pulse Oximeter] Pulse Rate [orthos tatic sitting Righ t Pulse Oximeter] Pulse Rate [orthos tatic standing Pul se Oximeter] Respiratory Rate 16 16 Blood Pressure [Ri ght Arm] 142/85 H Blood Pressure [or thostatic lying Le ft Arm] Blood Pressure [or thostatic sitting Left Arm] Blood Pressure [or thostatic standing Left Arm] Pulse Oximetry 92 Oxygen Delivery Me thod Room Air 08/07/24 10:19 08/07/24 10:26 08/07/24 15:00 Temperature 98.0 F Pulse Rate 77 Pulse Rate [Pulse Oximeter] 81 Pulse Rate [orthos tatic lying Right Pulse Oximeter] 81 Pulse Rate [orthos tatic sitting Righ t Pulse Oximeter] 87 Pulse Rate [orthos tatic standing Pul se Oximeter] 96 Respiratory Rate 16 Blood Pressure [Ri ght Arm] 140/86 H Blood Pressure [or thostatic lying Le ft Arm] 140/68 H Blood Pressure [or thostatic sitting Left Arm] 123/82 Blood Pressure [or thostatic standing Left Arm] 102/92 H Pulse Oximetry 95 Oxygen Delivery Me thod Room Air 08/07/24 15:00 08/07/24 15:00 08/07/24 15:00 Temperature 98.2 F Pulse Rate Pulse Rate [Pulse Oximeter] 77 77 77 Pulse Rate [orthos tatic lying Right Pulse Oximeter] Pulse Rate [orthos tatic sitting Righ t Pulse Oximeter] Pulse Rate [orthos tatic standing Pul se Oximeter] Respiratory Rate 16 16 Blood Pressure [Ri ght Arm] 124/66 Blood Pressure [or thostatic lying Le ft Arm] Blood Pressure [or thostatic sitting Left Arm] Blood Pressure [or thostatic standing Left Arm] Pulse Oximetry 96 Oxygen Delivery Me thod Room Air 08/07/24 19:00 08/07/24 23:20 08/07/24 23:20 Temperature 98.0 F Pulse Rate Pulse Rate [Pulse Oximeter] 72 68 Pulse Rate [orthos tatic lying Right Pulse Oximeter] Pulse Rate [orthos tatic sitting Righ t Pulse Oximeter] Pulse Rate [orthos tatic standing Pul se Oximeter] Respiratory Rate 16 14 Blood Pressure [Ri ght Arm] 120/68 Blood Pressure [or thostatic lying Le ft Arm] Blood Pressure [or thostatic sitting Left Arm] Blood Pressure [or thostatic standing Left Arm] Pulse Oximetry 95 Oxygen Delivery Tx thod Room Air 08/07/24 23:20 08/08/24 03:10 08/08/24 03:10 Temperature 98.0 F 98.2 F Pulse Rate Pulse Rate [Pulse Oximeter] 68 68 68 Pulse Rate [orthos tatic lying Right Pulse Oximeter] Pulse Rate [orthos tatic sitting Righ t Pulse Oximeter] Pulse Rate [orthos tatic standing Pul se Oximeter] Respiratory Rate 14 14 Blood Pressure [Ri ght Arm] 135/72 151/88 H Blood Pressure [or thostatic lying Le ft Arm] Blood Pressure [or thostatic sitting Left Arm] Blood Pressure [or thostatic standing Left Arm] Pulse Oximetry 94 93 Oxygen Delivery Tx thod Room Air Room Air DS: Data Data Completed and Pending Labs on day of discharge: Labs from last 24 hours 08/08/24 06:17 WBC 8.33 RBC 5.00 Hgb 14.0 Hct 44.2 MCV 88 MCH 28 MCHC 32 RDW Coeff of Peyton 14.2 Plt Count 102 L Neut % (Auto) 56.4 Lymph % (Auto) 30.4 Webster % (Auto) 8.8 Eos % (Auto) 3.0 Baso % (Auto) 0.8 Neut # (Auto) 4.70 Lymph # (Auto) 2.53 Webster # (Auto) 0.70 Eos # (Auto) 0.25 Baso # (Auto) 0.07 Abs Immat Gran (auto) 0.05 Imm/Tot Granulo (auto) 0.6 Discharge Plan Discharge Disposition: Home, Self-Care Date of Admission: 08/06/24 13:31 Attending Provider on Discharge: Triny Hong Discharge Medications: Continued metoprolol succinate 100 mg tablet extended release 24 hr 100 mg PO DAILY venlafaxine 150 mg capsule,extended release 24hr 150 mg PO DAILY calcium carbonate [Oyster Shell Calcium 500] 500 mg calcium (1,250 mg) tablet 500 mg PO DAILY mirtazapine 30 mg tablet 30 mg PO DAILY lisinopril 2.5 mg tablet 2.5 mg PO DAILY cholecalciferol (vitamin D3) 50 mcg (2,000 unit) capsule 50 mcg PO DAILY Discontinued levothyroxine 25 mcg tablet 25 mcg PO QAM Discharge Orders: Discharge Order (Routine); Ordered 08/08/24 Ordered By: Triny Hong Patient Education: Head Injury (DC) Additional Instructions: No changes to home medications. Recommend once/day blood pressure (goal is SBP <150 given recent head bleed) with therapies given recent fall. Activity Level: No strenuous activity Discharge Diet: Regular Follow Up Appointments: Nilo Pitt MD [Primary Care Provider] - Forms: [facility] Info Instructions
[2024-08-08] MEDS: SODIUM CHLORIDE 0.9 % (FLUSH) 10 ML SYRINGE 5 ML IVF (08:39)
[2024-08-08] MEDS: lisinopriL 5 MG TABLET 2.5 MG PO (08:39)
[2024-08-08] MEDS: METOPROLOL SUCCINATE (XL) 100 MG TAB PO (08:39)
[2024-08-08] MEDS: VENLAFAXINE ER 75 MG CAPSULE 150 MG PO (08:39)
--- NOTE | 2024-08-08 12:53 | PC.NURSE ---
Shift Note: Pt friendly and cooperative with cares. VS WNL, SBP have remained less than 160 with PRN medication. Neuro checks unremarkable and pt rates pain to left head 2/10. She has declined pain medication. She has had a good appetite and urine output. No BM. She was discharged to [facility] assisted living at [facility] via [facility]'s transport van at 1204. Pt verbalized understanding of discharge instructions. RN to RN report given to Tahira at [facility].
== END 2024-08-08 12:04 | disposition home or self-care (01) | DRG 55 ==
LOC: ED 12:13 → MEDSURG 13:02
PROVIDERS: Admitting Provider Family Medicine; Emergency Provider Family Medicine; PCP Family Medicine; Visit Provider Family Medicine
DX: S06.5XAA Traumatic subdural hemorrhage with loss of consciousness status unknown, initial encounter (principal); S06.6XAA Traumatic subarachnoid hemorrhage with loss of consciousness status unknown, initial encounter; W06.XXXA Fall from bed, initial encounter; Y92.092 Bedroom in other non-institutional residence as the place of occurrence of the external cause; I10 Essential (primary) hypertension; E03.9 Hypothyroidism, unspecified; S00.83XA Contusion of other part of head, initial encounter; S00.03XA Contusion of scalp, initial encounter; D69.6 Thrombocytopenia, unspecified; F32.A Depression, unspecified
CPT/HCPCS: 36415; 70450; 70486; 71250; 72125; 73030; 80048; 80053; 80076; 82550; 83605; 85025; 86140; 87081; 93005; 94761; 97110; 97116; 97161; 97165; 97530; 97535; 99285; G0378; A9270

== ENCOUNTER 2024-10-30 18:19 | Outpatient (CLI) | payer BC, SELFPAY | END 2024-10-30 18:20 | disposition home or self-care (01) | LOC: AMB 11-20 23:51 | PROVIDERS: PCP Family Medicine; Visit Provider Emergency Medicine Emergency Medical Services | DX: R20.0 Anesthesia of skin (principal); M79.604 Pain in right leg | CPT/HCPCS: A0425; A0427 ==

== ENCOUNTER 2024-10-30 18:43 | Emergency (ER) | payer BC, SELFPAY ==
--- OUTSIDE RECORDS SUMMARY | 2024-10-30 18:45 | XMS_ITS | Clinical Summary ---
Author Organization [facility] Address [place], [place] [address] Care Team Providers Care Manager Front Name Role Phone Francesca Pacheco NP Primary Care Provider [phone] Juan Luis Pacheco MD Unavailable [phone] Allergies No known active allergies Medications calcium carbonate (CALCIUM 500) 500 mg calcium (1,250 mg) tabletIndications: Age-related osteoporosis without current pathological fracture Take 1 tablet by mouth once daily with a meal. 30 tablet 11 9 Active venlafaxine (EFFEXOR XR) 150 mg Extended-Release capsuleIndications :Major depressive disorder, recurrent, severe without psychotic features (HC) TAKE ONE CAPSULE BY MOUTH ONCE DAILY WITH A MEAL 90 capsule 0 Active mirtazapine (REMERON) 30 mg tabletIndications: Insomnia, unspecified type TAKE 1 TABLET BY MOUTH AT BEDTIME. 90 tablet 0 Active metoprolol succinate (TOPROL XL) 50 mg sustained-release tabletIndications: Hypertension, unspecified type TAKE ONE TABLET BY MOUTH ONCE DAILY 90 tablet 0 Active levothyroxine (SYNTHROID) 25 mcg tabletIndications: Acquired hypothyroidism TAKE 1 TABLET BY MOUTH BEFORE BREAKFAST 90 tablet 0 Active VITAMIN D-3 50 mcg (2,000 unit) capsuleIndications :Hx of major depression TAKE ONE CAPSULE BY MOUTH ONCE DAILY 90 capsule 0 Active Active Problems Problem Noted Date Diagnosed Date MCI (mild cognitive impairment) 02/06/2019 Cerebrovascular disease 02/06/2019 Overview (04/15/2019): Patient no history of transient ischemic attack or stroke though she did have an old infarct on CT as well as small vessel vascular disease Depression 02/06/2019 ACP (advance care planning) 09/10/2018 DNR (do not resuscitate) 09/10/2018 Thrombocytopenia 09/25/2015 Hypothyroid HTN (hypertension) Resolved Problems Problem Noted Date Diagnosed Date Resolved Date Hematuria 09/25/2015 09/10/2018 Major depressive disorder, r ecurrent episode, severe, without mention of psychotic behavior 06/09/2012 11/25/2018 Immunizations Name Administration Dates Next Due Influenza, IIV3 (Age >=3 years) 08/21/2012 Pneumococcal Poly,23-Valent (Pneumovax) 02/08/20 17 Pneumococcal conj 13-Valent (Prevnar 13) 016 Family History Medical History Relation Name Comments Cancer-breast Maternal Aunt several aunts Cancer-breast Mother Cancer-colon Mother Blood Disease No Family History Relation Name Status Comments Maternal Aunt Mother Social History Tobacco Use Types Packs/Day Years Used Date Smoking Tobacco: Former Cigarettes Q uit: 02/26/2015 Smokeless Tobacco: Never Tobacco Cessation:Counseling Given: Yes Alcohol Use Standard Drinks/Week Comments No 0 (1 standard drink = 0.6 oz pur e alcohol) Comments No Sex and Gender Information Value Date Recorded Sex Assigned at Not on file Legal Sex Female 8:35 AM [employer] Gender Identity Not on file Sexual Orientation Not on file Obstetrics History Para Term AB IAB SAB Ectopic Multiple Livin g Live Births 2 2 2 2 Date Outcome GA Total Labor Labor/2nd/3rd Weight Sex Type Anes PTL Nona A1 A5 Name Clin Term Term Comments Vaginal deliveries, no compl ications Last Filed Vital Signs Vital Sign Reading Time Taken Comments Blood Pressure 144/80 11/18/2019 9:50 AM [employer] Pulse 76 11/18/2019 9:50 AM [employer] Temperature 36.4 C (97.5 F) 01/24/2018 8:57 PM CDT Respiratory Rate 16 06/20/2019 9:58 AM CDT Oxygen Saturation 98% 11/18/2019 9:50 AM [employer] Inhaled Oxygen Concentration - - Weight 66.9 kg (147 lb 6.4 oz) 09/10/2018 3:02 P M [employer] Height 171.7 cm (5' 7.6) 02/09/2016 9:54 AM CDT Body Mass Index 22.68 02/09/2016 9:54 AM CDT Plan of Treatment Health Maintenance Due Date Last Done Comments Tdap 1948 Tetanus booster 1957 Zoster (shingles) series for age 50+ (1 of 2) 1987 DEXA/DXA scan for age 65+ 2002 RSV vaccine for adults or pr egnancy (1 - 1-dose 75+ series) 2012 Medicare Wellness for age 65+ 01/12/2017 01/12/2016 BMI (ht and wt on same day) for age 18+ 02/08/2017 02/09/2016, 01/12/2016, 10/25/2015 Depression screening for age 12+ 02/07/2018 02/07/2017, 02/07/2017, 01/12/2016 COVID-19 vaccine series ( season) 2024 Influenza for age 65+ 06/15/2024 07/15/2015 (Completed outside of [facility]), 08/21/2012 Pneumococcal series for age 50+ Completed 7, 01/12/2016 Advance Directives Documents on File Type Date Recorded Patient Assurance Services Manager Health Care Expl anation POLST 12/03/2017 10:28 AM [employer] [place], 11/20/17 POLST 04/01/2015 4:46 PM DNR/ DNA 0 03/29/2015 Care Teams Manager Front Relationship Specialty Start Date End Date Francesca Pacheco NP [address] [place] [address] [address] [place] [address] PCP - General Geriatric Medicine - Internal Medicine 12/14/19 Juan Luis Pacheco MD [address] [place] [address] [address] [place] [address] Provider Family Practice 12/14/19
[2024-10-30 18:46] VITALS: BP 149/72; PULSE 74; RESP 16; TEMP 36.1; O2SAT 96; BMI 19.5
--- NOTE | 2024-10-30 18:47 | ED.GENADULT ---
HPI - General Adult General Date Seen: 10/30/24 Chief complaint: Lower Extremity Swelling Stated complaint: Ill Time Seen by Provider: 10/30/24 18:47 History of Present Illness HPI narrative: 89 yo F who has a past medical history traumatic intracranial hemorrhage in July 2024 after she fell out of bed, also history of hypertension, hypothyroidism. According to records from [facility] medication list includes calcium carbonate, levothyroxine, metoprolol, venlafaxine, mirtazapine, vitamin-D History is limited because patient does have dementia. She is not able to recall the name of her doctor or doctor's office. She knows that she lives at a care center here in [place]. She says that she had an ultrasound of her foot today and it showed something blocked with the arteries. His use a little bit limited but it sounds like she has been having pain and discoloration her left foot for about 3 weeks. Apparently her nurse's aide at her care center gave her a bath on Sunday and noted that her foot was much wider on Sunday then had been last week. It has been hurting intermittently. No clear pattern to the pain. It is hurting right now but very mild and she is not wanting pain medications. She has lost sensation in her toes. In addition to turning colors she has also developed nonhealing scabs on the great toe, on the dorsum of the 2nd and 3rd toes, and also on the medial aspect of the 1st metatarsophalangeal joint and 1st metatarsal. I contacted her care center by phone to find out what the ultrasound showed. They do not have the results but they gave the phone number for the Radiology Service who did the ultrasound. The ultrasound was done by [email or web address]. I contacted them. They are currently transmitting her ultrasound images to ?the reading group? to get a read. I asked them to make a stat read and have them call me here in the ER. Patient says she does not recall having any history of heart trouble or vascular trouble. No known history of AFib. She is not anticoagulated per her memory or per her med list. She has no other painful or discolored areas. Her right foot has been normal. I contacted her daughter by phone. Her daughter is currently stranded in [place] without a vehicle. Related Data Home Medications ?Medication ?Instructions ?Recorded ?Confirmed calcium carbonate (Oyster Shell 500 mg PO DAILY 08/06/24 08/06/24 Calcium 500) cholecalciferol (vitamin D3) 50 50 mcg PO DAILY 08/06/24 08/06/24 mcg (2,000 unit) capsule lisinopril 2.5 mg tablet 2.5 mg PO DAILY 08/06/24 08/06/24 metoprolol succinate 100 mg 100 mg PO DAILY 08/06/24 08/06/24 tablet,extended release 24 hr mirtazapine 30 mg tablet 30 mg PO DAILY 08/06/24 08/06/24 venlafaxine 150 mg 150 mg PO DAILY 08/06/24 08/06/24 capsule,extended release 24 hr Allergies Allergy/AdvReac Type Severity Reaction Status Date / Time No Known Drug Allergies Allergy Verified 08/06/24 09:27 [facility] Medical History (Updated 10/30/24 @ 23:19 by Perez Rivers MD) Thrombocytopenia ?D69.6 - Thrombocytopenia, unspecified (ICD-10) Depression ?F32.A - Depression, unspecified (ICD-10) Essential hypertension ?I10 - Essential (primary) hypertension (ICD-10) Hypothyroidism ?E03.9 - Hypothyroidism, unspecified (ICD-10) Surgical History (Updated 08/06/24 @ 14:29 by Triny Hong MD) H/O mastectomy ?Z90.10 - Acquired absence of unspecified breast and nipple (ICD-10) S/P hip replacement ?Z96.649 - Presence of unspecified artificial hip joint (ICD-10) History of hip surgery ?Z98.890 - Other specified postprocedural states (ICD-10) Social History (Updated 08/06/24 @ 14:30 by Triny Hong MD) Narrative: Lives in Assisted Living, 2 adult children in [place]. 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 Former smoker, no ETOH use. DNR/DNI What is your current living situation?: I presently have a place to live Problems where you live: no known problems Problems where you live details: NA In the past 12 months, utilities in danger of being shut off: no In past 12 months, lack of transportation kept you from medical appts, meetings, work, or getting things needed for daily living: no In the past 12 mos, have been you worried that your food would run out before you had money to buy more?: often true In the past 12 mos, the food you bought just didn't last and you didn't have money to buy more?: often true Highest level of school completed/degree received: Master's degree Smoking Status: Former smoker Second hand tobacco smoke exposure: Yes How often do you have a drink containing alcohol: never AUDIT-C Alcohol total score: 0 Non-prescribed substance use: denies use Caffeine: Yes (Coffee) How often does anyone, including family, friends and others, physically hurt you: never How often does anyone, including family, friends and others, insult or talk down to you: never How often does anyone, including family, friends and others, threaten you with harm: never How often does anyone, including family, friends and others, scream or curse at you: never Do you think of yourself as: straight/heterosexual Gender Identity: female service: No Health Related Social Needs: food insecurity (Z59.41) Exam Narrative: Exam Narrative: Constitutional: Appears well-developed and well-nourished. Alert. Conversant. Non toxic. Very pleasant. Well dressed. Wearing a prone necklace and a blue sweater. Does have dementia and is a limited historian. HENT: Head: Atraumatic. Nose: Nose normal. Mouth/Throat: Oral mucosa is clear and moist. no trismus. Pharynx normal. Tonsils symmetric. No tonsillar enlargement, erythema, or exudate. Eyes: Conjunctivae normal. EOM normal. Pupils equal, round, and reactive to light. No scleral icterus. Neck: Normal range of motion. Neck supple. No tracheal deviation present. Cardiovascular: Normal rate, regular rhythm. No gallop. No friction rub. No murmur heard. Symmetric radial artery pulses . I am able to palpate right foot DP pulse. I am not able to palpate DP or PT artery pulses in left foot. Her left forefoot is definitely ischemic. It is pale. Cap refill is slow at about 5 or 6 seconds. She has signs of skin breakdown and evolving dry gangrene with eschars on the great toe, and on the dorsal aspect of her 2nd and 3rd toes. Eschar is also extend a little bit on to the 1st toe MTP joint and distal 1st metatarsal. She is not able to wiggle her toes. She does not have sensation in the distal rate toe or in her 2nd and 3rd toes. There is no significant erythema or warmth. No purulent drainage. No ulcers. Pulmonary/Chest: Effort normal. No stridor. No respiratory distress. No wheezes. No rales. No rhonchi . No tenderness. Abdominal: Soft. No distension. No mass. No tenderness. No rebound. No guarding. Musculoskeletal: RUE: Normal range of motion. No tenderness. No deformity LUE: Normal range of motion. No tenderness. No deformity RLE: Normal range of motion. No edema. No tenderness. No deformity LLE: Normal range of motion. No edema. No tenderness. No deformity Neurological: Alert and oriented to person, place, and time. Normal strength. CN II-VII intact. No sensory deficit. GCS eye subscore is 4. GCS verbal subscore is 5. GCS motor subscore is 6. Normal coordination Skin: Skin is warm and dry. No rash noted. No pallor. Normal capillary refill. Psychiatric: Normal mood. Normal affect. Very pleasant. Const: Vital Signs, click to edit/add: Vital Signs - 24 hr 10/30/24 18:46 Temperature 97 F L Pulse Rate [Pulse Oximeter] 74 Respiratory Rate 16 Blood Pressure [Ri ght Upper Arm] 149/72 H Pulse Oximetry 96 Oxygen Delivery Me thod Room Air Course Course ED Course: Patient arrived by EMS. There were no open beds. She was taken to the ER lobby. His symptoms were able we were able to get her into ER room 4 where for for my initial history and physical exam. Use the discussed the plan of care with the patient. She agrees. Contacted her daughter by phone. Discussed that at this point we do not have a clear plan of care without the imaging findings and that I will call her back later once more information is available. We I contacted the patient's care center to try to get results of the patient's ultrasound imaging. They did not have a but gave me a phone number for the imaging center itself, [facility] [place]. I contacted the imaging center and they told me that they images are not yet read. They will try to expedite the read. I provided my phone number so the radiologist can call me directly with imaging results. Also provided are fax number so they can fax the imaging results right here to the ER Recheck-still no imaging results. We called back to the care center. They called again to [email or web address] still not able to get results. Recheck-still no imaging back. I called again to talk to RASHAUN ox, [email or web address]. This time I talked with a different [facility] receptionist telephone operator who told me that he was not allowed this could discussed the patient or imaging with me on the phone and he could not provide any information. He refused to even tell me if the images were going to be red tonight. Recheck-discussed with [facility] vascular surgery, Dr. Williamson. Discussed that were not able to further image the patient's like here in the ER as we do not have the ability of CT angiogram or arterial ultrasound. He is not able to make a recommendation about management without the ultrasound findings. Also not able to accept the patient in transfer to [facility] since they are at critical bed capacity and not able to accept any transfers. Recheck-ultrasound results finally her fax to us at about 11:00 p.m.. Ultrasound venous left lower extremity. Impression: 1. Negative for deep vein thrombosis in left lower extremity. To. No thrombus in the right common femoral vein Left lower extremity duplex scan of lower extremity arteries Impression: 1. Probable inflow disease suggested by tardus parvus flow in bilateral ELECTRICAL APPLIANCE REPAIRER is a. To. Echogenic material and trickle flow in the left SFA, with no definitive flow in the mid SFA consistent with severe arterial disease and collateral formation. 3. Very poor monophasic flow in the left popliteal artery and minimal flow in the distal tibial arteries, consistent with severe distal arterial insufficiency. Differential diagnosis: 1. Peripheral arterial disease 2. Chronic limb ischemia Recommendations: 1. Consider further imaging with CT angiography or MR angiography to delineate the extent of arterial disease [facility] 2. Vascular surgery consultation for evaluation of revascularization options. After receiving the ultrasound reports I again contacted [facility]. Discussed with vascular surgery. Upon hearing the ultrasound report, vascular surgery is confident that the patient does not require emergent transfer to [facility]. However he would like her to follow up as soon as she is able in the outpatient clinic. He says that there is 1 vascular surgeon who comes down to [place] and may be able to see her locally. She is to call his clinic number tomorrow morning to arrange a follow-up appointment. [phone]. I attempted to contact the patient's daughter. I called her number twice but she did not answer. Discussed the plan of care with the patient and she verbalizes her understanding. Vital Signs Vital signs: Initial Vital Signs Temperature 97 F L 10/30/24 18:46 Temperature Source Temporal Artery Scan 10/30/24 18:46 Pulse Rate 74 10/30/24 18:46 Respiratory Rate 16 10/30/24 18:46 Blood Pressure 149/72 H 10/30/24 18:46 Blood Pressure Mean 97 10/30/24 18:46 Blood Pressure Position Sitting 10/30/24 18:46 Pulse Oximetry 96 10/30/24 18:46 Oxygen Delivery Method Room Air 10/30/24 18:46 Vital Signs Temperature 97 F L 10/30/24 18:46 Pulse Rate 74 10/30/24 18:46 Respiratory Rate 16 10/30/24 18:46 Blood Pressure 149/72 H 10/30/24 18:46 Pulse Oximetry 96 10/30/24 18:46 Oxygen Delivery Method Room Air 10/30/24 18:46 Temperature 97 F L 10/30/24 18:46 Pulse Rate 74 10/30/24 18:46 Respiratory Rate 16 10/30/24 18:46 Blood Pressure 149/72 H 10/30/24 18:46 Pulse Oximetry 96 10/30/24 18:46 Oxygen Delivery Method Room Air 10/30/24 18:46 Medical Decision Making MDM Narrative Medical decision making narrative: 89-year-old female referred to the ER today from her care center here [place] with concern for acute limb ischemia. Apparently developed some pain and paresthesias in the toes of her left foot a week or 2 ago. With no distant have some discoloration of her foot last week during bath and then worsening discoloration with new eschars forming on her foot yesterday during bath. She had an outpatient ultrasound today. Verbal report from her care center is that the outpatient ultrasound shows acute occlusion of the arteries of the leg but she does have venous flow (I think meaning no DVT). She was sent immediately here to the ER. On my exam she does have signs of ischemia in her foot. She does not have palpable or ultrasound detectable Doppler pulses in her DP or PT artery. She does not have sensation in her toes and she is not able to walk wiggle her 1-3 toes. She does seem to have a little bit of wiggling and 4 5. She has delayed cap refill at about 6 seconds and very dusky whitish/bluish toes. She has some overlying scab/eschar on her foot that appears to be fairly fresh. None of it is black or completely dried or mummified yet. I do not see much surrounding erythema and there is no purulent drainage, no fever and no clear evidence for active infection in the foot. Workup here in the ER so far shows EKG with sinus rhythm, normal BMP, negative troponin, negative COVID/influenza/RSV PCR. Normal hemoglobin of 13.9. She does have thrombocytopenia with a platelet count of 95 which appears to be at her baseline. I have taken efforts to try to get the ultrasound results for this patient. Unfortunately they were obtained and an outpatient imaging center. I contacted the patient's care center to get results but they do not have them. I then contacted the imaging center itself directly. They are not able to give her results. They are not able to tell me even if the images will be read tonight. They are unwilling to discuss the imaging or the patient with me citing HIPPA privacy concerns. Consider repeat imaging here to determine the true extent of her arterial occlusion. Unfortunately in our facility we do not have arterial ultrasound or the ability to obtain CT angiogram of her lower extremity Patient's primary care is through the [facility] system. We reached out to the [facility] axis center and discussed the presentation with vascular surgery from [facility]. They are not able to make any recommendations without at least and ultrasound report. Also they are not able to accept the patient for any intervention tonight since their hospitals are on divert and not accepting even the ED to ED transfers. Lab Data Labs: Lab Results 10/30/24 Range/Units 19:41 WBC 7.50 (4.50-11.00) K/uL RBC 4.98 (4.00-5.20) m/uL Hgb 13.9 (12.0-16.0) gm/dL Hct 44.6 (33.0-51.0) % MCV 90 (80-100) fL MCH 28 (26-34) pg MCHC 31 L (32-36) gm/dL RDW Coeff of Peyton 14.8 (11.5-15.5) % Plt Count 95 L (140-440) K/uL Neut % (Auto) 60.0 (42.0-72.0) % Lymph % (Auto) 29.9 (20-44) % Haralson % (Auto) 7.3 (0.0-11.0) % Eos % (Auto) 1.9 (0.0-7.0) % Baso % (Auto) 0.8 (0.0-3.0) % Neut # (Auto) 4.50 (1.7-7.0) K/uL Lymph # (Auto) 2.24 (0.90-2.90) K/uL Haralson # (Auto) 0.50 (0.00-0.90) K/UL Eos # (Auto) 0.14 (0.00-0.50) K/uL Baso # (Auto) 0.06 (0.00-0.30) K/uL Abs Immat Gran (auto) 0.01 (0.00-0.30) K/uL Imm/Tot Granulo (auto) 0.1 % INR 0.96 (0.91-1.10) Sodium 137 (135-149) mmol/L Potassium 4.3 (3.6-5.1) mmol/L Chloride 102 (96-114) mmol/L Carbon Dioxide 30 (20-32) mmol/L Anion Gap 5 L (7-15) mEq/L BUN 30 (7-30) mg/dL Creatinine 1.1 (0.5-1.5) mg/dL Estimated Creat Clear 33.03 Estimated GFR 49 ml/min Glucose 122 H (60-115) mg/dL Calcium 9.8 (8.4-10.6) mg/dL Troponin I < 0.01 L (0.01-0.04) ng/mL SARS-CoV-2 (PCR) Negative SARS-CoV-2 (Negative) Influenza Type A (PCR) Negative PCR FLU A (Negative) Influenza Type B (PCR) Negative PCR FLU B (Negative) RSV (PCR) Negative PCR RSV (Negative) ECG Data Attestation: I personally reviewed and interpreted this ECG as follows: Interpretation: Normal sinus rhythm Rate: 71 NH: 162 QRS axis: Normal axis ST segment/T wave: No ST segment elevation or depression QTc: 428 Discharge Plan Discharge Clinical Impression: PAD (peripheral artery disease), Ischemic ulcer of left foot Patient Disposition: Home, Self-Care Condition: Stable Instructions: Peripheral Artery Disease (ED) Additional Instructions: Your ultrasound tonight showed that you do have blockages in the arteries feeding the blood to your left foot. I have discussed your case with the vascular surgeons from [facility]. Fortunately, you do not need emergency surgery tonight. It is very important for you to get a checkup with the vascular surgeons in their clinic as soon as possible. Call the [facility] vascular surgery clinic tomorrow when they open at 9:00 a.m. to schedule an appointment . Call [phone]. Tell the clinic schedulers that you were in the emergency department tonight and that the vascular wants juice to be seen as soon as able. Some other vascular surgery clinics are in the [facility]. Sometimes they have a surgeon who comes here to [place]. It is important for you to take the next available appointment. In the clinic he will need further testing for the blockages in your leg. If you have worsening symptoms before you can see the vascular surgeons, such as worsening or severe pain, significant spreading redness, high fever, or other signs of infection, please come back to the ER right away. Prescriptions: No Action metoprolol succinate 100 mg tablet extended release 24 hr 100 mg PO DAILY venlafaxine 150 mg capsule,extended release 24hr 150 mg PO DAILY calcium carbonate [Oyster Shell Calcium 500] 500 mg calcium (1,250 mg) tablet 500 mg PO DAILY mirtazapine 30 mg tablet 30 mg PO DAILY lisinopril 2.5 mg tablet 2.5 mg PO DAILY cholecalciferol (vitamin D3) 50 mcg (2,000 unit) capsule 50 mcg PO DAILY Follow Up/Referrals: Nilo Pitt MD [Primary Care Provider] - Stand Alone Forms: [employer] Info Instructions
--- NOTE | 2024-10-30 19:32 | CRLHL7_ITS ---
For Patients: As a result of the Century Cures Act, medical imaging exams and procedure reports are released immediately into your electronic medical record. You may view this report before your referring provider. If you have questions, please contact your health care provider. INDICATION: ACUTE LIMB ISCHEMIA, NEEDS HEPARIN. HISTORY OF ICH TECHNIQUE: CT of the head was performed without IV contrast. COMPARISON: 08/07/2024. FINDINGS: Parenchyma: No acute hemorrhage, infarction, or mass. Moderate confluent periventricular white matter hypoattenuation is nonspecific and is favored to represent chronic small vessel ischemic disease. Redemonstration of left cerebellar encephalomalacia. Ventricles and extra-axial spaces: Mild involutional changes. Visualized paranasal sinuses: Clear. Mastoid air cells: Clear. Bones: No focal abnormality. Additional comment: None. IMPRESSION: No acute intracranial abnormality. Please note that all CT scans at this facility use dose modulation, iterative reconstruction, and/or weight-based dosing when appropriate to reduce radiation dose to as low as reasonably achievable. Dictated by Diego Gonzalez MD @ 10/30/2024 8:30:19 PM (Electronically Signed)
--- OUTSIDE RECORDS SUMMARY | 2024-10-30 19:36 | XMS_ITS | Clinical Summary ---
Author Organization [facility] Address [place], [place] [address] Care Team Providers Care Tractor Crane Engineer Name Role Phone Francesca Pacheco NP Primary Care Provider [phone] Juan Luis Pacheco MD Unavailable Allergies No known active allergies Medications calcium [...] on file Legal Sex Female 8:35 AM OPERATIONS ASSISTANT Gender Identity Not on file Sexual Orientation [...] Comments Blood Pressure 144/80 11/18/2019 9:50 AM OPERATIONS ASSISTANT Pulse 76 11/18/2019 9:50 AM OPERATIONS ASSISTANT Temperature 36.4 C (97.5 F) 01/24/2018 8:57 PM CDT Respiratory Rate 16 06/20/2019 9:58 AM CDT Oxygen Saturation 98% 11/18/2019 9:50 AM OPERATIONS ASSISTANT Inhaled Oxygen Concentration - - Weight 66.9 kg (147 lb 6.4 oz) 09/10/2018 3:02 P M OPERATIONS ASSISTANT Height 171.7 cm (5' 7.6) 02/09/2016 9:54 [...] Documents on File Type Date Recorded 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
[2024-10-30 19:55] LABS: Basophils Absolute Auto 0.06 K/uL (0.00-0.30); Basophils Percent Auto 0.8 % (0.0-3.0); Eosinophils Absolute Auto 0.14 K/uL (0.00-0.50); Eosinophils Percent Auto 1.9 % (0.0-7.0); Hematocrit 44.6 % (33.0-51.0); Hemoglobin* 13.9 gm/dL (12.0-16.0); Immature Granulocytes Abs Auto 0.01 K/uL (0.00-0.30); Immature Granulocytes Pct Auto 0.1 %; Lymphocytes Absolute Auto 2.24 K/uL (0.90-2.90); Lymphocytes Percent Auto 29.9 % (20-44); Mean Corpuscular HGB Conc 31 gm/dL (32-36); Mean Corpuscular Hemoglobin 28 pg (26-34); Mean Corpuscular Volume 90 fL (80-100); Monocytes Percent Auto 7.3 % (0.0-11.0); Platelet Count* 95 K/uL (140-440); RDW Coefficient of Variation % 14.8 % (11.5-15.5); Red Blood Count 4.98 m/uL (4.00-5.20)
[2024-10-30 20:00] LABS: Slide Review Reflex No
[2024-10-30 20:03] LABS: Chloride* 102 mmol/L (96-114); Potassium* 4.3 mmol/L (3.6-5.1); Sodium* 137 mmol/L (135-149)
[2024-10-30 20:06] LABS: Anion Gap 5 mEq/L (7-15); Blood Urea Nitrogen* 30 mg/dL (7-30); Carbon Dioxide* 30 mmol/L (20-32); Creatinine* 1.1 mg/dL (0.5-1.5); Est. Creatinine Clearance* 33.03; Estimated Glomerular Filt Rate 49 ml/min
[2024-10-30 20:07] LABS: Calcium* 9.8 mg/dL (8.4-10.6); Glucose* 122 mg/dL (60-115); INR 0.96 (0.91-1.10); Prothrombin Time 13.4 Seconds
[2024-10-30 20:19] LABS: Troponin I* < 0.01 ng/mL (0.01-0.04)
[2024-10-30 20:43] LABS: PCR FLU A Negative PCR FLU A (Negative); PCR FLU B Negative PCR FLU B (Negative); PCR RSV Negative PCR RSV (Negative); SARS PCR* Negative SARS-CoV-2 (Negative)
--- NOTE | 2024-10-31 00:13 | ED.NURSE ---
EMS questioning whether pt should be a wheelchair ride, this nurse states due to pt's dementia and also the fact that pt may tip forward in her wheelchair due to left arterial clots and no feeling in her left foot, it would be appropriate to stretcher ride pt home. EMS taking pt home, but they do not agree with this nurse. This nurse signed PCS paperwork. Pt transporting home at thi time, pt report called to [facility].
== END 2024-10-31 00:16 | disposition home or self-care (01) ==
PROVIDERS: Emergency Provider Emergency Medicine; PCP Family Medicine
DX: L97.529 Non-pressure chronic ulcer of other part of left foot with unspecified severity (principal); I73.9 Peripheral vascular disease, unspecified
CPT/HCPCS: 36415; 70450; 80048; 84484; 85025; 85610; 87631; 93005; 99284

== ENCOUNTER 2024-10-31 00:08 | Outpatient (CLI) | payer BC, SELFPAY | END 2024-10-31 00:09 | disposition home or self-care (01) | LOC: AMB 11-12 18:58 | PROVIDERS: PCP Family Medicine; Visit Provider Family Medicine | DX: L97.529 Non-pressure chronic ulcer of other part of left foot with unspecified severity (principal); F03.90 Unspecified dementia, unspecified severity, without behavioral disturbance, psychotic disturbance, mood disturbance, and anxiety | CPT/HCPCS: A0425; A0428 ==

== ENCOUNTER 2024-11-14 15:21 | Outpatient (REF) | payer BC, SELFPAY ==
[2024-11-14 16:00] LABS: Basophils Absolute Auto 0.07 K/uL (0.00-0.30); Basophils Percent Auto 0.8 % (0.0-3.0); Eosinophils Absolute Auto 0.08 K/uL (0.00-0.50); Hematocrit 44.2 % (33.0-51.0); Hemoglobin* 13.9 gm/dL (12.0-16.0); Immature Granulocytes Abs Auto 0.03 K/uL (0.00-0.30); Immature Granulocytes Pct Auto 0.4 %; Lymphocytes Absolute Auto 2.04 K/uL (0.90-2.90); Lymphocytes Percent Auto 24.5 % (20-44); Mean Corpuscular HGB Conc 31 gm/dL (32-36); Mean Corpuscular Hemoglobin 28 pg (26-34); Mean Corpuscular Volume 89 fL (80-100); Monocytes Percent Auto 8.7 % (0.0-11.0); Neutrophils Absolute Auto 5.38 K/uL (1.7-7.0); Neutrophils Percent Auto 64.6 % (42.0-72.0); Platelet Count* 124 K/uL (140-440); RDW Coefficient of Variation % 14.6 % (11.5-15.5); Red Blood Count 4.95 m/uL (4.00-5.20); White Blood Count* 8.32 K/uL (4.50-11.00)
[2024-11-14 16:20] LABS: Slide Review Reflex No
[2024-11-14 21:47] LABS: Chloride* 102 mmol/L (96-114); Potassium* 4.6 mmol/L (3.6-5.1); Sodium* 137 mmol/L (135-149)
[2024-11-14 21:50] LABS: Creatinine* 1.1 mg/dL (0.5-1.5); Estimated Glomerular Filt Rate 49 ml/min
[2024-11-14 21:51] LABS: Anion Gap 13 mEq/L (7-15); Blood Urea Nitrogen* 30 mg/dL (7-30); Calcium* 9.5 mg/dL (8.4-10.6); Carbon Dioxide* 22 mmol/L (20-32); Glucose* 117 mg/dL (60-115)
[2024-11-14 21:53] LABS: C Reactive Protein* 1.8 mg/dL (0.5-1.0)
== END 2024-11-14 15:22 | disposition home or self-care (01) ==
LOC: NPINS 15:21
PROVIDERS: PCP Family Medicine; Visit Provider Nurse Practitioner Gerontology
DX: I73.9 Peripheral vascular disease, unspecified (principal)
CPT/HCPCS: 80048; 85025; 86140

== ENCOUNTER 2024-11-17 12:39 | Outpatient (CLI) | payer BC, SELFPAY | END 2024-11-17 12:40 | disposition home or self-care (01) | PROVIDERS: PCP Family Medicine; Visit Provider Surgery Vascular Surgery | DX: I73.9 Peripheral vascular disease, unspecified (principal) | CPT/HCPCS: 93922 ==

== ENCOUNTER 2024-11-21 19:12 | Outpatient (CLI) | payer BC, SELFPAY | END 2024-11-21 19:13 | disposition home or self-care (01) | LOC: AMB 11-26 15:33 | PROVIDERS: PCP Nurse Practitioner Adult Health; Visit Provider Family Medicine | DX: M79.672 Pain in left foot (principal) | CPT/HCPCS: A0425; A0429 ==